=== PATIENT | female | born 1945 | race Caucasian/White ===

== ENCOUNTER 2023-09-17 15:32 | Inpatient (IN) | payer MEDICARE, BC ==
--- NOTE | 2023-09-17 16:11 | ED ---
Recheck HPI - General Chief Complaint: Recheck/Abnormal Lab/Rx Stated Complaint: Transfer-Vertigo Time Seen by Provider: 09/17/23 15:55 Source: patient, EMS, RN notes reviewed, old records reviewed Mode of arrival: ambulatory Limitations: no limitations - History of Present Illness Initial Comments: This is a 77-year-old female accepted in transfer from [facility] excepted for evaluation regards to vertiginous symptoms uncontrolled blood pr essure and kidney failure kidney disease. Patient himself is without significant patient has no current complaints of headache chest pain shortness of breath or abdominal pain. MD Complaint: abnormal lab (Abnormal kidney function), other (Persistent vertiginous symptoms and dizziness) -: hour(s) Returns Today for: Called Because of Abnormal Lab/Test, persistent/worsening pain related to initial visit Symptoms Since Prior Visit: no new symptoms Context: called for abnormal lab result Associated Symptoms: fever Treatments Prior to Arrival: other (0) - Related Data Previous Rx's Medication Instructions Recorded Acetaminophen Tab [Tylenol] 650 mg PO Q6HR PRN tab 09/22/23 Aspirin 81 mg PO DAILY tab 09/22/23 Atorvastatin [Lipitor] 40 mg PO HS tab 09/22/23 Clopidogrel [Plavix] 75 mg PO DAILY #0 tab 09/22/23 Dapagliflozin Propanediol [Farxiga] 5 mg PO DAILY #30 tablet 09/22/23 Insulin Detemir (Levemir) [Levemir] 25 unit SQ DAILY@0700 each 09/22/23 Sodium Bicarbonate Tab 650 mg PO BID tab 09/22/23 Allergies Allergy/AdvReac Type Severity Reaction Status Date / Time No Known Allergies Allergy Verified 09/17/23 16:24 Review of Systems ROS Statement: Those systems with pertinent positive or pertinent negative responses have been documented in the HPI. ROS Other: All systems not noted in ROS Statement are negative. Past Medical History Past Medical History: No Reported History History of Any Multi-Drug Resistant Organisms: None Reported Additional Past Surgical History / Comment(s): cataracts Past Psychological History: No Psychological Hx Reported Smoking Status: Never smoker Past Alcohol Use History: None Reported Past Drug Use History: None Reported General Exam Limitations: no limitations General appearance: alert, in no apparent distress Head exam: Present: atraumatic, normocephalic, normal inspection Eye exam: Present: normal appearance, PERRL, EOMI, nystagmus. Absent: scleral icterus, conjunctival injection, periorbital swelling ENT exam: Present: normal exam, mucous membranes moist Neck exam: Present: normal inspection. Absent: tenderness, meningismus, lymphadenopathy Respiratory exam: Present: normal lung sounds bilaterally. Absent: respiratory distress, wheezes, rales, rhonchi, stridor Cardiovascular Exam: Present: regular rate, normal rhythm, normal heart sounds. Absent: systolic murmur, diastolic murmur, rubs, gallop, clicks GI/Abdominal exam: Present: soft, normal bowel sounds. Absent: distended, tenderness, guarding, rebound, rigid Extremities exam: Present: normal inspection, full ROM, normal capillary refill. Absent: tenderness, pedal edema, joint swelling, calf tenderness Back exam: Present: normal inspection Neurological exam: Present: alert, oriented X3, CN II-XII intact Psychiatric exam: Present: normal affect, normal mood Skin exam: Present: warm, dry, intact, normal color. Absent: rash Course Vital Signs 09/17/23 09/17/23 09/17/23 15:38 17:19 20:22 Temperature 97.9 F Pulse Rate 78 89 99 Pulse Rate [ Complaint Operator ] Respiratory 18 18 18 Rate Blood Pressure 160/86 170/103 172/92 Blood Pressure [Right Arm] O2 Sat by Pulse 96 95 96 Oximetry 09/18/23 09/18/23 09/18/23 03:34 04:00 05:00 Temperature Pulse Rate 98 80 79 Pulse Rate [ Complaint Operator ] Respiratory 16 18 16 Rate Blood Pressure 157/89 158/90 145/99 Blood Pressure [Right Arm] O2 Sat by Pulse 100 100 99 Oximetry 09/18/23 09/18/23 09/18/23 06:00 08:10 11:04 Temperature 98.0 F 98.4 F Pulse Rate 82 Pulse Rate [ Complaint Operator ] Respiratory 15 16 16 Rate Blood Pressure 165/95 Blood Pressure 140/90 166/82 [Right Arm] O2 Sat by Pulse 99 95 96 Oximetry 09/18/23 09/18/23 15:35 18:45 Temperature 98.4 F 98.0 F Pulse Rate Pulse Rate [ 76 Complaint Operator ] Respiratory 16 18 Rate Blood Pressure Blood Pressure 157/75 151/88 [Right Arm] O2 Sat by Pulse 94 L 96 Oximetry - Reevaluation(s) Reevaluation #1: 09/17/23 16:53 Medical records reviewed Transfer paperwork has been reviewed Reevaluation #2: 09/17/23 16:53 Patient symptoms unchanged Reevaluation #3: 09/17/23 16:53 Patient informed of results and questions answered Reevaluation #4: Was pt. sent in by a medical professional or institution ([facility], POWER PRESS OPERATOR, urgent care, hospital, or long term...) When possible be specific @ -no Did you speak to anyone other than the patient for history (EMS, parent, family, police, friend...)? What history was obtained from this source @ -no Did you review nursing and triage notes (agree or disagree)? Why? @ -agree Are old charts reviewed (outside hosp., previous admission, EMS record, old EKG, old radiological studies, urgent care reports/EKG's, long term records)? Report findings @ -yes Differential Diagnosis (chest pain, altered mental status, abdominal pain women, abdominal pain men, vaginal bleeding, weakness, fever, dyspnea, syncope, headache, dizziness, GI bleed, back pain, seizure, CVA, palpatations, mental health, musculoskeletal)? @ -prior EKG interpreted by me (3pts min.). @ -no X-rays interpreted by me (1pt min.). @ -no CT interpreted by me (1pt min.). @ -no U/S interpreted by me (1pt. min.). @ -no What testing was considered but not performed or refused? (CT, X-rays, U/S, labs)? Why? @ -none What meds were considered but not given or refused? Why? @ -none Did you discuss the management of the patient with other professionals (professionals i.e. [facility], POWER PRESS OPERATOR, lab, RT, psych nurse, clinical social work aide, grounds caretaker, teacher, career services officer, classification case manager)? Give summary @ -no Was smoking cessation discussed for >3mins.? @ -no Was critical care preformed (if so, how long)? @ -no Were there social determinants of health that impacted care today? How? (Homelessness, low income, unemployed, alcoholism, drug addiction, transportation, low edu. Level, literacy, decrease access to med. care, prison, rehab)? @ -none Was there de-escalation of care discussed even if they declined (Discuss DNR or withdrawal of care, Hospice)? DNR status @ -no What co-morbidities impacted this encounter? (DM, HTN, Smoking, COPD, CAD, Cancer, CVA, ARF, Chemo, Hep., AIDS, mental health diagnosis, sleep apnea, morbid obesity)? @ -none Was patient admitted / discharged? Hospital course, mention meds given and route, prescriptions, significant lab abnormalities, going to OR and other pertinent info. @ - 77 female to ER for evaluation, accepted in transfer for vertiginous symptoms CVA, patient found to have acute renal failure with multiple electrode abnormalities. Patient will be admitted for further neurological evaluation, blood pressure control Admitted Undiagnosed new problem with uncertain prognosis? @ -no Drug Therapy requiring intensive monitoring for toxicity (Heparin, Nitro, Insulin, Cardizem)? @ -no Were any procedures done? @ -no Diagnosis/symptom? @ -CVA, vertigo Acute, or Chronic, or Acute on Chronic? @ -Acute Uncomplicated (without systemic symptoms) or Complicated (systemic symptoms)? @ -Complicated Side effects of treatment? @ -no Exacerbation, Progression, or Severe Exacerbation? @ -exacerbation Poses a threat to life or bodily function? How? (Chest pain, USA, SD, pneumonia, PE, COPD, DKA, ARF, appy, cholecystitis, CVA, Diverticulitis, Homicidal, Suicidal, threat to staff... and all critical care pts) @ -yes with vertiginous symptoms of CVA Reevaluation #5: Differential Dizziness: Benign paroxysmal positional Vertigo, Menieres disease, otitis media, acoustic neuroma, vertebrobasilar insufficiency, cerebellar stroke, encephalitis, hypovolemic, arrhythmia, coronary artery syndrome, anemia, this is not meant to be an all-inclusive list - Consultations Consultation #1: Spoke with admitting physicians who agreed to admit this patient Medical Decision Making - Medical Decision Making 77 female to ER for evaluation, accepted in transfer for vertiginous symptoms CVA, patient found to have acute renal failure with multiple electrode abnormalities. Patient will be admitted for further neurological evaluation, blood pressure control - Lab Data Result diagrams: 09/20/23 07:01 09/22/23 04:51 Critical Care Time Critical Care Time: Yes Total Critical Care Time: 31 Disposition Clinical Impression: Weakness, Hypertension, Dizziness, Vertigo, GORDO (acute kidney injury) Disposition: ADMITTED IP TO THIS HOSP Condition: Stable Is patient prescribed a controlled substance at d/c from ED?: No Time of Disposition: 16:50
[2023-09-17] MEDS ORDERED: MORPHINE SULFATE 4 MG/ML SYRINGE IV PRN (16:50)
[2023-09-17] MEDS ORDERED: ONDANSETRON 4 MG/2 ML VIAL IVP PRN (16:50)
[2023-09-17] MEDS ORDERED: NALOXONE 0.4 MG/ML 1 ML VIAL IV PRN (16:50)
[2023-09-17] MEDS: ASPIRIN 325 MG TAB PO STA (17:17)
[2023-09-17] MEDS ORDERED: DEXTROSE 50% SYRINGE 50 ML IVP PRN ×2 (17:57)
--- NOTE | 2023-09-17 18:05 | P.HPIM ---
History of Present Illness H&P Date: 09/17/23 Patient is a 77-year-old female with no significant past medical history presenting with strokelike symptoms. She claims that she was in her usual state of health, however, yesterday evening when she was playing bingo at her 's residence, started to become lightheaded. Later that night she got up to go to the bathroom and had similar episode and was able to lower herself onto the floor. She denies hitting her head at that time. This morning she was checked on by her neighbor as well as her daughter and was noted to be slow, fatigued, and was then brought to the hospital. Daughter did not notice any facial droop or slurring of words. She denies any chest pain, palpitations, nausea, vomiting, urinary or bowel complaints. She denies any upper or lower extremity weakness, trouble swallowing, word finding difficulties. She denies any fevers, chills, travel history or sick contacts. At [facility], on initial presentation she was hypertensive, WBC 12.8, hemoglobin 14.6, platelet 294, sodium 133, potassium 4.2, creatinine 2.2, glucose 368, troponin high-sensitivity slightly elevated to 21.6. UA was positive for 1+ leukocyte esterase, positive for nitrites. CT head did not show any acute process. CTA head and neck showed some calcified plaque in the common carotid arteries, no significant stenosis, did see some irregularities and M2 branches bilaterally concerning for atherosclerotic disease versus vasculitis. Patient was moved to our ER. In our ED, temperature was 97.9, pulse 78, respiratory rate 18, blood pressure 160/86, saturating at 96% on room air. Pertinent positives and negatives as discussed in HPI, a complete review of systems was performed and all other systems are negative. Patient seen and examined at bedside. Vital signs reviewed General: nontoxic, no distress, appears at stated age Derm: warm, dry Head: atraumatic, normocephalic, symmetric Eyes: EOMI, no lid lag, anicteric sclera, pupils equal round reactive to light ENT: Nose and ears atraumatic Neck: No thyromegaly, supple Mouth: no lip lesion, mucus membranes moist Cardiovascular: S1S2 reg, no murmur, no edema Lungs: clear to auscultation bilateral, no rhonchi, no rales, no wheeze, no accessory muscle use Abdominal: soft, nontender to palpation, no guarding, no appreciable organomegaly Ext: Right lower extremity weakness due to pain Neuro: CN II-XII grossly intact Psych: Alert, oriented, appropriate affect Assessment/Plan: Suspected acute CVA Near syncope Hypertension Acute renal failure? Elevated troponin Hyperglycemia Leukocytosis, possibly reactive - Started on aspirin 81 mg, atorvastatin 40 mg - Allow for permissive hypertension - Patient does not have any urinary complaints, unlikely to be a urinary tract infection - MRI brain ordered - Echocardiogram, carotid ultrasound pending - Lipid panel, A1c, repeat troponin, TSH, B12 pending - Neurology consulted, nephrology also consulted - Renal ultrasound ordered - Neurochecks, cardiac telemetry - Started on sliding scale insulin, monitor for hypoglycemia - PT/OT The patient is admitted with an anticipated greater than 2 midnight stay as inpatient status for evaluation of acute CVA. Surrogate decision-maker: Daughter CODE STATUS: Full code DVT prophylaxis: Subcu heparin Anticipated discharge date: Pending clinical course Anticipated discharge place: Pending clinical course A total of 55 minutes was spent on the care of this complex patient more than 50% of the time was spent in counseling and care coordination. Past Medical History Past Medical History: No Reported History History of Any Multi-Drug Resistant Organisms: None Reported Additional Past Surgical History / Comment(s): cataracts Past Psychological History: No Psychological Hx Reported Smoking Status: Never smoker Past Alcohol Use History: None Reported Past Drug Use History: None Reported Medications and Allergies Home Medications Medication Instructions Recorded Confirmed Type No Known Home Medications 09/17/23 09/17/23 History Allergies Allergy/AdvReac Type Severity Reaction Status Date / Time No Known Allergies Allergy Verified 09/17/23 16:24 Physical Exam Vitals: Vital Signs Temp Pulse Resp BP Pulse Ox 09/17/23 17:19 89 18 170/103 95 09/17/23 15:38 97.9 F 78 18 160/86 96 Intake and Output 09/17/23 09/17/23 09/17/23 06:59 14:59 22:59 Other: Weight 86.183 kg
[2023-09-17] MEDS: SODIUM CHLORIDE 0.9% 1,000 ML IV SCH (18:41)
[2023-09-17 20:13] LABS: Glucose,Whole Blood 282 mg/dL (70-110)
[2023-09-17] MEDS: INSULIN ASPART (NovoLOG) 100 UNIT/ML VIAL SQ SCH (20:23)
[2023-09-17] MEDS: ATORVASTATIN 40 MG TAB PO SCH (20:23)
--- NOTE | 2023-09-18 07:30 | US ---
EXAMINATION TYPE: US carotid duplex BILAT DATE OF EXAM: 09/17/2023 COMPARISON: NONE CLINICAL INDICATION: Female, 77 years old with history of Stenosis; dizziness yesterday TECHNIQUE: Carotid duplex ultrasound examination. Indirect Doppler criteria was utilized. FINDINGS: EXAM MEASUREMENTS: RIGHT: Peak Systolic Velocity (PSV) cm/sec ----- Right CCA: 48.1 ----- Right ICA: 63.4 ----- Right ECA: 136 ICA/CCA ratio: 1.32 RIGHT: End Diastole cm/sec ----- Right CCA: 12.5 ----- Right ICA: 18.8 ----- Right ECA: 10.2 LEFT: Peak Systolic Velocity (PSV) cm/sec ----- Left CCA: 54.6 ----- Left ICA: 53.0 ----- Left ECA: 72.9 ICA/CCA ratio: 0.97 LEFT: End Diastole cm/sec ----- Left CCA: 17.3 ----- Left ICA: 16.8 ----- Left ECA: 7.9 VERTEBRALS (direction of flow): Right Vertebral: Antegrade Left Vertebral: Antegrade Rhythm: Normal MANAGER ETL NOTES: No plaque seen. Left CCA is very tortuous IMPRESSION: No evidence for hemodynamically significant stenosis. Criteria for Assigning % of Stenosis / Diameter reduction (Estimation based on the indirect measurements of the internal carotid artery velocities (ICA PSV). 1. Normal (no stenosis)=ICA PSV < 125 cm/s: ratio < 2.0: ICA EDV<40 cm/s. 2. Less than 50% stenosis=ICA PSV < 125 cm/s: ratio < 2.0: ICA EDV<40 cm/s. 3. 50 to 69% stenosis=ICA PSV of 125 to 230 cm/s: ration 2.0 ? 4.0: ICA EDV 40-100 cm/s. 4. Greater than 70% stenosis to near occlusion= ICA PSV > 230 cm/s: ratio > 4.0: ICA EDV > 100 cm/s. 5. Near occlusion= ICA PSV velocities may be low or undetectable: variable ratio and ICA EDV. 6. Total occlusion=unable to detect flow.
--- NOTE | 2023-09-18 07:45 | US ---
EXAMINATION TYPE: US renals and bladder DATE OF EXAM: 09/17/2023 COMPARISON: NONE CLINICAL INDICATION: Female, 77 years old with history of gordo; GORDO EXAM MEASUREMENTS: Right Kidney: 10.5 x 5.0 x 5.9 cm Left Kidney: 9.8 x 4.9 x 5.1 cm Extremely limited exam due to lack of patient mobility and patient body habitus Right Kidney: Multiple anechoic lesions seen, largest measuring 3.5 x 3.3 x 4.2cm at the inferior pablo e. Left Kidney: Multiple anechoic lesions seen, largest measuring 1.8 x 2.1 x 2.3cm at the inferior pole Bladder: wnl as best seen Bilateral Jets seen: Left only IMPRESSION: Multiple renal cysts noted.
[2023-09-18 07:46] LABS: Basophils # (A) 0.1 k/uL (0-0.2); Basophils % (A) 1 %; Eosinophils # (A) 0.2 k/uL (0-0.7); Eosinophils % (A) 1 %; HCT 44.6 % (34.0-46.0); HGB 14.6 gm/dL (11.4-16.0); Lymphocytes # (A) 1.7 k/uL (1.0-4.8); Lymphocytes % (A) 12 %; MCH 32.6 pg (25.0-35.0); MCHC 32.7 g/dL (31.0-37.0); MCV 99.5 fL (80.0-100.0); Mean Platelet Volume 8.9; Monocytes # (A) 0.7 k/uL (0-1.0); Monocytes % (A) 5 %; Neutrophils # (A) 11.2 k/uL (1.3-7.7); Neutrophils % (A) 79 %; Platelet Count 290 k/uL (150-450); RBC 4.48 m/uL (3.80-5.40); RDW 12.5 % (11.5-15.5); WBC 14.1 k/uL (3.8-10.6)
[2023-09-18 07:59] LABS: ALT 15 U/L (4-34); AST 23 U/L (14-36); African American GFR (CKD) 23 (>60 ml/min/1.73 sqM); Albumin 3.9 g/dL (3.5-5.0); Alkaline Phosphatase 130 U/L (38-126); Anion Gap 11 mmol/L; Blood Urea Nitrogen 42 mg/dL (7-17); Calcium 9.7 mg/dL (8.4-10.2); Carbon Dioxide 19 mmol/L (22-30); Chloride 106 mmol/L (98-107); Glucose 276 mg/dL (74-99); Magnesium 2.2 mg/dL (1.6-2.3); Non-African American GFR(CKD) 20 (>60 ml/min/1.73 sqM); Phosphorus 4.1 mg/dL (2.5-4.5); Potassium 4.8 mmol/L (3.5-5.1); Sodium 136 mmol/L (137-145); Total Bilirubin 0.6 mg/dL (0.2-1.3); Total Protein 7.6 g/dL (6.3-8.2)
[2023-09-18] MEDS: PANTOPRAZOLE 40 MG/10 ML VIAL IV SCH (08:03)
[2023-09-18] MEDS: ASPIRIN 81 MG PO SCH (08:03)
[2023-09-18 08:09] LABS: Glucose,Whole Blood 322 mg/dL (70-110)
[2023-09-18] MEDS ORDERED: ASPIRIN 325 MG TAB PO SCH (09:00)
[2023-09-18 10:51] LABS: Chol/HDL Ratio 5.38 Ratio; LDL Cholesterol,Calculated 148.4 mg/dL (0.0-131.0)
--- NOTE | 2023-09-18 10:55 | P.NPCON ---
History of Present Illness - Reason for Consult acute renal failure - History of Present Illness Reason for consultation: Acute kidney injury History of present illness: Patient is a 77-year-old female seen in renal consultation for acute kidney injury. Patient was seen and examined in the emergency room. Patient initially presented to another facility due to concern for stroke. Patient became lighth eaded couple of times prior to admission and felt weak. She was noted to be slow, fatigue and was subsequently taken to the hospital. Initial CAT scan did not show any acute process. She also underwent CTA of the head and neck which showed some calcified plaque in the common carotid arteries and no significant stenosis. Patient's creatinine initially was 2.2 and is stable at 2.26 at this facility as well. Blood pressure is better controlled. Most recent reading was 140/90. Patient is on room air. She denies any weakness in any extremities. She denies any vision changes. Denies headaches. Denies chest pain or shortness of breath. Denies gross hematuria or dysuria. Patient denies use of nonsteroidals. Denies history of coronary artery disease. No history of diabetes. Denies family history of renal disease. Oral intake has been fair. Denies vomiting or diarrhea. Vital signs are stable. General: No acute distress. HEENT: Head exam is unremarkable. LUNGS: No audible rhonchi or wheezes. HEART: Rate and Rhythm are regular. ABDOMEN: Nontender. EXTREMITITES: No edema. Past Medical History Past Medical History: No Reported History History of Any Multi-Drug Resistant Organisms: None Reported Additional Past Surgical History / Comment(s): cataracts Past Psychological History: No Psychological Hx Reported Smoking Status: Never smoker Past Alcohol Use History: None Reported Past Drug Use History: None Reported Medications and Allergies Home Medications Medication Instructions Recorded Confirmed Type No Known Home Medications 09/17/23 09/17/23 History Allergies Allergy/AdvReac Type Severity Reaction Status Date / Time No Known Allergies Allergy Verified 09/17/23 16:24 Physical Exam Vitals: Vital Signs Temp Pulse Resp BP BP Pulse Ox 09/18/23 08:10 98.0 F 16 140/90 95 09/18/23 06:00 82 15 165/95 99 09/18/23 05:00 79 16 145/99 99 09/18/23 04:00 80 18 158/90 100 09/18/23 03:34 98 16 157/89 100 09/17/23 20:22 99 18 172/92 96 09/17/23 17:19 89 18 170/103 95 09/17/23 15:38 97.9 F 78 18 160/86 96 Intake and Output 09/17/23 09/18/23 09/18/23 22:59 06:59 14:59 Intake Total 250 Output Total 700 Balance -450 Intake: IV 10 Invasive Line 1 10 Oral 240 Output: Urine 700 Other: Voiding Method External Catheter # Voids 3 Weight 86.183 kg Results - Lab Results Most recent lab results Calcium 9.7 mg/dL (8.4-10.2) 09/18/23 07: Phosphorus 4.1 mg/dL (2.5-4.5) 09/18/23 07: Magnesium 2.2 mg/dL (1.6-2.3) 09/18/23 07:24 09/18/23 07:24 09/18/23 07:24 Assessment and Plan Plan: Assessment: 1. Acute kidney injury versus chronic kidney disease. Patient's creatinine stable at 2.2. Unknown baseline renal function. Patient denies prior history of kidney disease. Patient did receive IV contrast for CT angiogram of the head and neck on September 17, 2023. 2. Suspected acute CVA. Initial CT negative. MRI pending. 3. Benign hypertension. Stable. 4. Diabetes mellitus with hemoglobin A1c elevated at 9.2% this admission. 5. Metabolic acidosis secondary to acute kidney injury and IV fluids. Plan: Maintain gentle IV hydration. Currently on normal saline at 50 cc an hour. Add oral bicarb. Check UA. Check renal ultrasound. Avoid nephrotoxins. Continue to monitor renal function and urine output. Follow-up echocardiogram and MRI of the brain. Thank you for the consultation. I will continue to follow the patient with you during her hospital stay.
[2023-09-18] MEDS: SODIUM BICARBONATE TAB 650 MG TAB PO SCH (11:16)
[2023-09-18] MEDS: ACETAMINOPHEN TAB 325 MG TAB PO PRN (11:16)
[2023-09-18 11:53] LABS: Glucose,Whole Blood 295 mg/dL (70-110)
[2023-09-18 12:03] LABS: Appearance,Urine Cloudy (Clear); Bacteria,Urine Rare /hpf; Bilirubin,Urine Negative (Negative); Blood,Urine Trace (Negative); Color,Urine Colorless; Glucose,Urine (UA) 3+ (Negative); Ketones,Urine Negative (Negative); Leukocyte Esterase,Urine Large (Negative); Nitrite,Urine Negative (Negative); Protein,Urine 2+ (Negative); RBC,Urine 2 /hpf (0-5); Specific Gravity,Urine 1.022 (1.001-1.035); Squamous Epithelial Cell,Urine 2 /hpf (0-4); Urobilinogen,Urine <2.0 mg/dL (<2.0); WBC,Urine 96 /hpf (0-5)
--- NOTE | 2023-09-18 12:37 | CA ---
Transthoracic Echo Report Name: Kayce Mercado Age: 77 Gender: F : 1945 Exam Date: 09/18/2023 07:32 Exam Location: [place] [facility] Ht (in): 64 Wt (lb): 190 Ordering Physician: Andrea Hernandez DO Attending/Referring Phys: [id number], Mary Informaticist Siobhan Lopez RDCS Procedure CPT: Indications: Thrombus Cardiac Hx: Technical Quality: Technically difficult study Contrast 1: Definity Total Dose (mL): 2 Contrast 2: Total Dose (mL): MEASUREMENTS (Male / Female) Normal Values 2D ECHO LV Diastolic Diameter PLAX 2.7 cm 4.2 - 5.9 / 3.9 - 5.3 cm LV Systolic Diameter PLAX 2.3 cm IVS Diastolic Thickness 1.4 cm 0.6 - 1.0 / 0.6 - 0.9 cm LVPW Diastolic Thickness 1.2 cm 0.6 - 1.0 / 0.6 - 0.9 cm LV Relative Wall Thickness 1.0 LA Volume 51.7 cm??? 18 - 58 / 22 - 52 cm??? LA Volume Index 25.8 cm???/m??? 16 - 28 cm???/m??? DOPPLER AV Peak Velocity 115.0 cm/s AV Peak Gradient 5.3 mmHg AV Mean Velocity 89.3 cm/s AV Mean Gradient 3.4 mmHg AV Velocity Time Integral 21.4 cm LVOT Peak Velocity 94.1 cm/s LVOT Peak Gradient 3.5 mmHg LVOT Velocity Time Integral 18.7 cm Mitral E Point Velocity 67.3 cm/s Mitral A Point Velocity 100.4 cm/s Mitral E to A Ratio 0.7 MV E' Velocity 2.4 cm/s Mitral E to MV E' Ratio 28.3 FINDINGS Left Ventricle Mildly increased left ventricular wall thickness. Left ventricular cavity size normal. [place] aneurysmal. Can not exclude left ventricular apical thrombus. Left ventricular ejection fraction is estimated at 45-50 %. Grade 1 diastolic dysfunction. Right Ventricle Right ventricle not well visualized. Right ventricular systolic pressure within normal limits. Right Atrium Right atrium not well visualized. Left Atrium Normal left atrial size. Mitral Valve Structurally normal mitral valve. Mild mitral regurgitation. Aortic Valve No aortic valve stenosis or regurgitation. Trileaflet aortic valve. Tricuspid Valve Tricuspid valve not well visualized. Pulmonic Valve Pulmonic valve not well visualized. Pericardium No pericardial effusion. Aorta Aortic root and proximal ascending aorta not well visualized. 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 Sarabjit Jon MD (Electronically Signed) Final Date: 18 September 2023 12:36
--- NOTE | 2023-09-18 13:52 | P.PN ---
Subjective Progress Note Date: 09/18/23 Hospital Course: 77-year-old female with no significant past medical history presenting with [facility] symptoms. At [facility], on initial presentation she was hypertensive, WBC 12.8, hemoglobin 14.6, platelet 294, sodium 133, potassium 4.2, creatinine 2.2, glucose 368, troponin high-sensitivity slightly elevated to 21.6. UA was positive for 1+ leukocyte esterase, positive for nitrites. CT head did not show any acute process. CTA head and neck showed some calcified plaque in the common carotid arteries, no significant stenosis, did see some irregularities and M2 branches bilaterally concerning for atherosclerotic disease versus vasculitis. Patient was moved to our ER. In our ED, temperature was 97.9, pulse 78, respiratory rate 18, blood pressure 160/86, saturating at 9 6% on room air. Stroke workup pending. Subjective: Patient seen and examined at bedside. No acute events overnight. Denies any further symptoms. Pertinent positives and negatives as discussed above, a complete review of systems was performed and all other systems are negative. Vitals Signs Reviewed. General: nontoxic, no distress, appears at stated age Derm: warm, dry Head: atraumatic, normocephalic, symmetric Eyes: EOMI, no lid lag, anicteric sclera, pupils equal round reactive to light ENT: Nose and ears atraumatic Neck: No thyromegaly, supple Mouth: no lip lesion, mucus membranes moist Cardiovascular: S1S2 reg, no murmur, no edema Lungs: clear to auscultation bilateral, no rhonchi, no rales, no wheeze, no accessory muscle use Abdominal: soft, nontender to palpation, no guarding, no appreciable organomegaly Ext: Right lower extremity weakness due to pain Neuro: CN II-XII grossly intact Psych: Alert, oriented, appropriate affect Data Reviewed Today: Pertinent Labs: WBC 14.1 sodium 136, creatinine 2.26, blood sugars range between 2 76-3 12, LDL 148, total cholesterol 241, urinalysis negative for nitrites, positive for leukocyte esterase, rare bacteria. Imaging: Echocardiogram shows aneurysmal apex, LV H with easily preserved LV systolic function EF 50 to 55%, with no clear-cut thrombus identified with contrast. Renal ultrasound shows multiple renal cyst. Assessment and Plan: Suspected acute CVA Near syncope Hypertension Dyslipidemia Acute renal failure versus chronic kidney disease Newly diagnosed type 2 diabetes, A1c 9.2 Leukocytosis, possibly reactive -Continue aspirin 81 mg, atorvastatin 40 mg -Also started on lisinopril 10, hydrochlorothiazide 12.5 - MRI brain ordered Discussed management with neurology, concerning findings noted on previous CTA , MRA ordered -Cardiology also consulted, orthostatic vitals have been ordered -Nephrology note reviewed, continue normal saline at 50 cc an hour, added oral bicarb - Neurochecks, cardiac telemetry - on sliding scale insulin, monitor for hypoglycemia, also started on 10 units of Levemir daily - PT/OT DVT ppx: Subcu heparin Code status: Full code Anticipated discharge place: Pending clinical course Anticipated discharge time: Pending clinical course Objective - Vital Signs Vital signs: Vital Signs Temp 98.4 F 09/18/23 11:04 Pulse 82 09/18/23 06:00 Resp 16 09/18/23 11:04 BP 166/82 09/18/23 11:04 Pulse Ox 96 09/18/23 11:04 FiO2 Intake & Output 09/17/23 09/18/23 09/18/23 18:59 06:59 18:59 Intake Total 890 Output Total 850 Balance 40 Weight 86.183 kg 86.183 kg Intake: IV 10 Invasive Line 1 10 Intake, IV Titration 400 Amount Sodium Chloride 0.9% 1, 400 000 ml @ 50 mls/hr IV . Q20H [facility] Rx#:[id number] Oral 480 Output: Urine 850 Other: Voiding Method External Catheter # Voids 1 - Labs CBC & Chem 7: 09/18/23 07:24 09/18/23 07:24 Labs: Abnormal Lab Results - Last 24 Hours (Table) 09/17/23 09/17/23 09/17/23 Range/Units 17:30 17:30 20:12 WBC (3.8-10.6) k/uL Neutrophils # (1.3-7.7) k/uL Sodium (137-145) mmol/L Carbon Dioxide (22-30) mmol/L BUN (7-17) mg/dL Creatinine (0.52-1.04) mg/dL Glucose (74-99) mg/dL POC Glucose (mg/dL) 282 H (70-110) mg/dL Hemoglobin A1c 9.2 H (<=6.0) % Alkaline Phosphatase (38-126) U/L Triglycerides (0.00-149.00) mg/dL Cholesterol (0.00-200.00) mg/dL LDL Cholesterol, Calc (0.0-131.0) mg/dL VLDL Cholesterol, Calc (5.00-40.00) mg/dL Vitamin B12 1235.0 H (200.0-944.0) pg/mL Urine Appearance (Clear) Urine Protein (Negative) Urine Glucose (UA) (Negative) Urine Blood (Negative) Ur Leukocyte Esterase (Negative) Urine WBC (0-5) /hpf Urine Bacteria (None) /hpf 09/18/23 09/18/23 09/18/23 Range/Units 07:24 07:24 08:02 WBC 14.1 H (3.8-10.6) k/uL Neutrophils # 11.2 H (1.3-7.7) k/uL Sodium 136 L (137-145) mmol/L Carbon Dioxide 19 L (22-30) mmol/L BUN 42 H (7-17) mg/dL Creatinine 2.26 H (0.52-1.04) mg/dL Glucose 276 H (74-99) mg/dL POC Glucose (mg/dL) 322 H (70-110) mg/dL Hemoglobin A1c (<=6.0) % Alkaline Phosphatase 130 H (38-126) U/L Triglycerides 239.00 H (0.00-149.00) mg/dL Cholesterol 241.00 H (0.00-200.00) mg/dL LDL Cholesterol, Calc 148.4 H (0.0-131.0) mg/dL VLDL Cholesterol, Calc 47.80 H (5.00-40.00) mg/dL Vitamin B12 (200.0-944.0) pg/mL Urine Appearance (Clear) Urine Protein (Negative) Urine Glucose (UA) (Negative) Urine Blood (Negative) Ur Leukocyte Esterase (Negative) Urine WBC (0-5) /hpf Urine Bacteria (None) /hpf 09/18/23 09/18/23 Range/Units 09:17 11:51 WBC (3.8-10.6) k/uL Neutrophils # (1.3-7.7) k/uL Sodium (137-145) mmol/L Carbon Dioxide (22-30) mmol/L BUN (7-17) mg/dL Creatinine (0.52-1.04) mg/dL Glucose (74-99) mg/dL POC Glucose (mg/dL) 295 H (70-110) mg/dL Hemoglobin A1c (<=6.0) % Alkaline Phosphatase (38-126) U/L Triglycerides (0.00-149.00) mg/dL Cholesterol (0.00-200.00) mg/dL LDL Cholesterol, Calc (0.0-131.0) mg/dL VLDL Cholesterol, Calc (5.00-40.00) mg/dL Vitamin B12 (200.0-944.0) pg/mL Urine Appearance Cloudy H (Clear) Urine Protein 2+ H (Negative) Urine Glucose (UA) 3+ H (Negative) Urine Blood Trace H (Negative) Ur Leukocyte Esterase Large H (Negative) Urine WBC 96 H (0-5) /hpf Urine Bacteria Rare H (None) /hpf
[2023-09-18] MEDS: INSULIN DETEMIR (LEVEMIR) 100 UNIT/ML SYR SQ ONE (15:36)
[2023-09-18] MEDS: LISINOPRIL-HCTZ 10-12.5 MG 1 EACH TAB PO SCH (15:36)
[2023-09-18] MEDS: HEPARIN SODIUM,PORCINE 5,000 UNIT/ML 1 ML VIAL SQ SCH (15:40)
[2023-09-18 16:17] LABS: Glucose,Whole Blood 320 mg/dL (70-110)
--- NOTE | 2023-09-18 16:33 | P.CNNES ---
History of Present Illness Consult date: 09/18/23 Requesting physician: Andrea Hernandez Reason for Consult: vertigo History of Present Illness: This is a 77 year-old woman who was transferred from outside facility for vertigo and escalation of care. Patient is not great history and some history is obtained from medical records. It seems the patient felt dizzy yesterday and was taken to [facility]. Per record she was lightheaded when she got up to go to bathroom. She was taken to outside hospital and was discharged. But she came back to hospital since she continued to have dizziness with nausea and vomiting and felt she fell on floor. Per medical records she lowered herself to floor. She felt slow, fatigued. She had CT and CTA at outside [facility]. CT head did not show any acute process. CTA head and neck showed some calcified plaque in the common carotid arteries, no significant stenosis, did see some irregularities and M2 branches bilaterally concerning for atherosclerotic disease versus vasculitis. She was also hypertensive. The refore she was transferred for escalation of care. Today she is feeling better. She denies any history of stroke in past. She stated she does not seek going to hospital and tried not to take medicati ons. Some of the work-up in our facility consisted of: Lipid panel: TG 239, chol 241, LDL 148, HDL 47 HBA1c: 9.2 Carotid is reported as no evidence for hemodynamically significant stenosis. 2D echo: Is revored as LVH with easily preserved LV systolic function with EF 50-55%. No clear cut thrombus. Vitamin B12: 1235 TSH: 2.56 Creatnine is 2.26 U/A appears possible underlying UTI Review of Systems The positive and negative as per HPI. Past Medical History Past Medical History: No Reported History History of Any Multi-Drug Resistant Organisms: None Reported Additional Past Surgical History / Comment(s): cataracts Smoking Status: Never smoker Medications and Allergies Home Medications Medication Instructions Recorded Confirmed Type No Known Home Medications 09/17/23 09/17/23 History Allergies Allergy/AdvReac Type Severity Reaction Status Date / Time No Known Allergies Allergy Verified 09/17/23 16:24 Physical Examination - Vital Signs Vital Signs: Vital Signs Temp Pulse Resp BP BP Pulse Ox 09/18/23 15:35 98.4 F 16 157/75 94 L 09/18/23 11:04 98.4 F 16 166/82 96 09/18/23 08:10 98.0 F 16 140/90 95 09/18/23 06:00 82 15 165/95 99 09/18/23 05:00 79 16 145/99 99 09/18/23 04:00 80 18 158/90 100 09/18/23 03:34 98 16 157/89 100 09/17/23 20:22 99 18 172/92 96 09/17/23 17:19 89 18 170/103 95 Intake and Output 09/18/23 09/18/23 09/18/23 06:59 14:59 22:59 Intake Total 890 Output Total 850 Balance 40 Intake: IV 10 Invasive Line 1 10 Intake, IV Titration 400 Amount Sodium Chloride 0.9% 1, 400 000 ml @ 50 mls/hr IV . Q20H [facility] Rx#:[id number] Oral 480 Output: Urine 850 Other: Voiding Method External Catheter # Voids 1 Weight 86.183 kg General: Lying in bed and is not in acute distress. HENT: Supple neck. Neuro: The patient is awake, alert, oriented to self, place and time. Is following simple commands. No aphasia or neglect. Pupils are round, equal and reactive to light. Pupils are 3mm bilaterally. Visual preciado are full to confrontation. EOM intact and no nystagmus. No facial weakness. No dysarthria. Tongue is midline and moves side to side without difficulty. Motor: Strength is limited right lower because of pain. Otherwise strength is 5/5. Sensation: Normal to touch throughout. Reflex: 1+ throughout. Plantars: Mute bilaterally. Results - Laboratory Findings CBC and BMP: 09/18/23 07:24 09/18/23 07:24 Abnormal Lab Findings: Abnormal Labs 09/17/23 09/17/23 09/17/23 17:30 17:30 20:12 WBC Neutrophils # Sodium Carbon Dioxide BUN Creatinine Glucose POC Glucose (mg/dL) 282 H Hemoglobin A1c 9.2 H Alkaline Phosphatase Triglycerides Cholesterol LDL Cholesterol, Calc VLDL Cholesterol, Calc Vitamin B12 1235.0 H Urine Appearance Urine Protein Urine Glucose (UA) Urine Blood Ur Leukocyte Esterase Urine WBC Urine Bacteria 09/18/23 09/18/23 09/18/23 07:24 07:24 08:02 WBC 14.1 H Neutrophils # 11.2 H Sodium 136 L Carbon Dioxide 19 L BUN 42 H Creatinine 2.26 H Glucose 276 H POC Glucose (mg/dL) 322 H Hemoglobin A1c Alkaline Phosphatase 130 H Triglycerides 239.00 H Cholesterol 241.00 H LDL Cholesterol, Calc 148.4 H VLDL Cholesterol, Calc 47.80 H Vitamin B12 Urine Appearance Urine Protein Urine Glucose (UA) Urine Blood Ur Leukocyte Esterase Urine WBC Urine Bacteria 09/18/23 09/18/23 09:17 11:51 WBC Neutrophils # Sodium Carbon Dioxide BUN Creatinine Glucose POC Glucose (mg/dL) 295 H Hemoglobin A1c Alkaline Phosphatase Triglycerides Cholesterol LDL Cholesterol, Calc VLDL Cholesterol, Calc Vitamin B12 Urine Appearance Cloudy H Urine Protein 2+ H Urine Glucose (UA) 3+ H Urine Blood Trace H Ur Leukocyte Esterase Large H Urine WBC 96 H Urine Bacteria Rare H Assessment and Plan Assessment: This is a 77 y/o woman who was transferred from outside facility for escalation of care for her dizziness. She denies seeing a PCP or taking medications. Acute vertigo: Rule out acute ischemic stroke with newly risk factors (Newly diagnosed DM, HTN, dyslipidemia. As well age and her gender) Newly Diagnosed DM Dyslipidemia HTN Possible acute UTI Kidney insufficiency and unsure if acute or chronic Plan: MRI Brain is ordered. I ordered MRA head. She is started on ASA 81mg and Lipitor 40mg qhs. She was not on medications prior to this per patient. Continue neuro checks Cardiac monitoring Recommend orthostatic once is pain free. PT and OT are consulted. Cardiology and Nephrology are consulted. Will defer rest of medical management to primary team and other specialist. For DVT prophylaxis: On subq heparin. The plan is discussed with patient, her nurse and primary attending. Thank you for the consultation. Time with Patient: Greater than 30
[2023-09-18] MEDS: LORazepam 2 MG/ML INJ IV ONE (16:48)
--- NOTE | 2023-09-18 18:21 | MR ---
MRI brain without contrast HISTORY: CVA. COMPARISON: None. TECHNIQUE: Multiecho multiplanar images of brain were obtained without contrast. FINDINGS: On the T1-weighted sagittal images the midline structures including the craniovertebral junction rela tionships are normal. The ventricles, basal cisterns and sulci over convexities are within normal limits for the patient's age and there is no mass effect or shift of the midline structures. There is moderate to marked diffuse and multifocal abnormal increased signal intensity in the periven tricular white matter both cerebral hemispheres consistent with chronic ischemic white matter [place]. Based on diffusion-weighted imaging, there is a focal area of diffusion restriction indicating acute ischemic event in the right midbrain. Based on susceptibility weighted imaging, there is no parenchymal hemorrhage. The intraorbital contents are normal and symmetric. Visualized paranasal sinuses and mastoid air cells are well aerated. IMPRESSION: 1. Small focal acute ischemic infarct involving the right midbrain. 2. Mild age-appropriate atrophy. 3. Moderate to marked chronic ischemic white matter demyelination. 4. No mass effect or shift of the midline structures.
--- NOTE | 2023-09-18 18:23 | MR ---
EXAMINATION TYPE: MR angio head wo con DATE OF EXAM: 09/18/2023 COMPARISON: None HISTORY: CVA. stroke. TECHNIQUE: Time of flight images focusing on the [place] were performed without contrast. FINDINGS: There is no aneurysm sac, vascular malformation, segmental occlusion or stenosis. IMPRESSION: No significant abnormality seen.
--- NOTE | 2023-09-18 18:25 | XR ---
Right knee. HISTORY: Pain following fall. COMPARISON: None TECHNIQUE: 4 views of the right knee were obtained. FINDINGS: There is diffuse osteopenia. There are arteriovascular calcifications. There is no fracture, dislocation or focal intraosseous abnormality. There is moderate narrowing of the medial compartment of the knee indicating moderate osteoarthritis. There is moderate to marked narrowing of the patellofemoral compartment consistent with moderate to marked osteoarthritis. There is chondrocalcinosis in the lateral compartment of the knee.. IMPRESSION: 1. No evidence of acute trauma. 2. Tricompartment osteoarthritis. 3. Diffuse osteopenia and arteriovascular calcifications.
[2023-09-18 20:26] LABS: Glucose,Whole Blood 289 mg/dL (70-110)
[2023-09-19 06:19] LABS: Glucose,Whole Blood 348 mg/dL (70-110)
[2023-09-19] MEDS: INSULIN DETEMIR (LEVEMIR) 100 UNIT/ML SYR SQ SCH (06:33)
[2023-09-19 07:52] LABS: Basophils # (A) 0.1 k/uL (0-0.2); Basophils % (A) 0 %; Eosinophils # (A) 0.1 k/uL (0-0.7); Eosinophils % (A) 0 %; HCT 42.7 % (34.0-46.0); HGB 13.3 gm/dL (11.4-16.0); Lymphocytes # (A) 1.8 k/uL (1.0-4.8); Lymphocytes % (A) 14 %; MCH 31.3 pg (25.0-35.0); Mean Platelet Volume 8.7; Monocytes # (A) 0.8 k/uL (0-1.0); Monocytes % (A) 6 %; Neutrophils # (A) 10.4 k/uL (1.3-7.7); Neutrophils % (A) 78 %; Platelet Count 238 k/uL (150-450); RBC 4.23 m/uL (3.80-5.40); RDW 12.1 % (11.5-15.5); WBC 13.3 k/uL (3.8-10.6)
[2023-09-19 08:03] LABS: African American GFR (CKD) 18 (>60 ml/min/1.73 sqM); Anion Gap 10 mmol/L; Blood Urea Nitrogen 55 mg/dL (7-17); Calcium 9.1 mg/dL (8.4-10.2); Carbon Dioxide 19 mmol/L (22-30); Chloride 105 mmol/L (98-107); Glucose 249 mg/dL (74-99); Magnesium 2.3 mg/dL (1.6-2.3); Non-African American GFR(CKD) 16 (>60 ml/min/1.73 sqM); Potassium 4.5 mmol/L (3.5-5.1); Sodium 134 mmol/L (137-145)
[2023-09-19] MEDS: CLOPIDOGREL 75 MG TAB PO SCH (09:19)
--- NOTE | 2023-09-19 10:54 | P.CRDCN ---
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 We have been asked to evaluate the patient for near syncope. Patient states that she was at [place] visiting her who was there on long-term care and she started having dizziness ended up falling when she was getting up to the bathroom and ended up falling down and was then treated at [facility]. She also had a second episode with dizziness fatigue and some nausea and vomiting. [facility] found to have a CVA Per MRI of the brain that revealed a small focal acute ischemic infarct involving the right midbrain. Otherwise age-related appropriate atrophy. Patient denies having any weakness on one side of her body, no difficulty with her speech. Patient had also presented to [facility] with hypertension. Upon arrival to the emergency center at [facility], blood pressure 170/103. Patient has been started on aspirin 81 mg daily, atorvastatin 40 mg at bedtime, heparin subcu, lisinopril/hydrochlorothiazide and sodium bicarb. EKG sinus rhythm with nonspecific ST changes Echocardiogram reveals LVH with preserved LV systolic function EF 50 to 55% with distal apical aneurysm. No clear-cut thrombus identified even with Definity. Laboratory studies: WBC initially 14.1 now 13.3, hemoglobin 13.3. Sodium 134 potassium 4.5. BUN 55 and creatinine 2.77. Blood sugar 249. Alkaline phosphatase 130 otherwise liver function test are normal. Troponin negative x 2. Triglycerides 239, cholesterol 241, LDL 148, HDL 44. Urinalysis leukoesterase large, WBCs 96. A1c 9.2. Home cardiac medications: None Review Of Systems: At the time of my exam: CONSTITUTIONAL: Denies fever or chills. HEENT: Denies blurred vision, vision changes, or eye pain. Denies hemoptysis CARDIOVASCULAR: Denies chest pain. Denies orthopnea. Denies PND. Denies palpitations RESPIRATORY: Denies shortness of breath. GASTROINTESTINAL: Denies abdominal pain. Denies nausea or vomiting. HEMATOLOGIC: Denies bleeding disorders. GENITOURINARY: Denies any blood in urine. SKIN: Denies pruitis. Denies rash. Physical examination: Gen: This is a 77-year-old female in no acute distress VS: reviewed blood pressure 121/78, heart rate 84, pulse ox 94% on room air. HEENT: Head is atraumatic, normocephalic. Pupils equal, round. Sclerae is anicteric. NECK: Supple. No JVD. LUNGS: Clear to auscultation. No wheezes or rhonchi. No intercostal retractions. HEART: Regular rate and rhythm. No murmur. ABDOMEN: Soft No tenderness. EXTREMITIES: No pedal edema. No calf tenderness. NEUROLOGICAL: Patient is awake, alert and oriented x3. Assessment: CVA Dizziness Acute kidney injury Uncontrolled hypertension Diabetes mellitus type 2, A1c 9.2, new diagnosis Hyperlipidemia Urinary tract infection Plan: Continue current cardiac medications Control hypertension Further recommendations to follow based upon clinical course Thank you kindly for this consultation. Nurse practitioner note has been reviewed, I agree with documented findings and plan of care. Patient was seen and examined. Past Medical History Past Medical History: No Reported History History of Any Multi-Drug Resistant Organisms: None Reported Additional Past Surgical History / Comment(s): cataracts Smoking Status: Never smoker Medications and Allergies Home Medications Medication Instructions Recorded Confirmed Type No Known Home Medications 09/17/23 09/17/23 History Allergies Allergy/AdvReac Type Severity Reaction Status Date / Time No Known Allergies Allergy Verified 09/17/23 16:24 Physical Exam Vitals: Vital Signs Temp Pulse Resp BP Pulse Ox 09/19/23 04:00 98.3 F 84 18 121/78 94 L 09/19/23 02:00 82 20 09/19/23 00:00 98.0 F 82 18 132/84 93 L 09/18/23 20:00 98.2 F 84 20 136/87 96 09/18/23 18:45 98.0 F 76 18 151/88 96 09/18/23 15:35 98.4 F 16 157/75 94 L 09/18/23 11:04 98.4 F 16 166/82 96 09/18/23 08:10 98.0 F 16 140/90 95 Intake and Output 09/18/23 09/19/23 09/19/23 22:59 06:59 14:59 Intake Total 20 10 Output Total 500 Balance -480 10 Intake: IV 20 10 Invasive Line 2 20 10 Output: Urine 500 Other: Voiding Method External Catheter External Catheter # Voids 1 1 Weight 86.4 kg Results 09/19/23 07:17 09/19/23 07:17 Lipids 09/18/23 Range/Units 07:24 Triglycerides 239.00 H (0.00-149.00) mg/dL Cholesterol 241.00 H (0.00-200.00) mg/dL HDL Cholesterol 44.80 (40.00-60.00) mg/dL Cholesterol/HDL Ratio 5.38 Ratio CBC 09/19/23 Range/Units 07:17 WBC 13.3 H (3.8-10.6) k/uL RBC 4.23 (3.80-5.40) m/uL Hgb 13.3 (11.4-16.0) gm/dL Hct 42.7 (34.0-46.0) % Plt Count 238 (150-450) k/uL Current Medications Generic Name Dose Route Start Last Admin Trade Name Freq PRN Reason Stop Dose Admin Acetaminophen 650 mg 09/18/23 11:01 09/18/23 18:58 Acetaminophen Tab 325 Mg Tab PO 650 mg Q6HR PRN Administration Fever and/ or Pain Aspirin 81 mg 09/18/23 09:00 09/18/23 08:03 Aspirin 81 Mg PO 81 mg DAILY AUDREY Administration Atorvastatin Calcium 40 mg 09/17/23 21:00 09/18/23 21:31 Atorvastatin 40 Mg Tab PO 40 mg HS AUDREY Administration Dextrose/Water 25 ml 09/17/23 17:57 Dextrose 50% Syringe 50 Ml IVP PER PROTOCOL PRN Hypoglycemia Protocol Dextrose/Water 50 ml 09/17/23 17:57 Dextrose 50% Syringe 50 Ml IVP PER PROTOCOL PRN Hypoglycemia Protocol Lisinopril/HCTZ 1 each 09/18/23 14:00 09/18/23 15:36 Lisinopril-Hctz 10-12.5 Mg 1 Each Tab PO 1 each DAILY AUDREY Administration Heparin Sodium (Porcine) 5,000 unit 09/18/23 16:00 09/18/23 23:45 Heparin Sodium,Porcine 5,000 Unit/Ml 1 Ml Vial SQ 5,000 unit Q8HR AUDREY Administration Sodium Chloride 1,000 mls @ 50 mls/hr 09/17/23 17:00 09/18/23 11:16 Saline 0.9% IV 50 mls/hr .Q20H AUDREY Administration Insulin Aspart 0 unit 09/17/23 21:00 09/19/23 06:33 Insulin Aspart (Novolog) 100 Unit/Ml Vial SQ 4 unit ACHS AUDREY Administration Protocol Insulin Detemir 10 unit 09/19/23 07:00 09/19/23 06:33 Insulin Detemir (Levemir) 100 Unit/Ml Syr SQ 10 unit DAILY@0700 AUDREY Administration Morphine Sulfate 4 mg 09/17/23 16:50 Morphine Sulfate 4 Mg/Ml Syringe IV Q4HR PRN Severe Pain (Scale 7 to 10) Naloxone HCl 0.2 mg 09/17/23 16:50 Naloxone 0.4 Mg/Ml 1 Ml Vial IV Q2M PRN Opioid Reversal Ondansetron HCl 4 mg 09/17/23 16:50 Ondansetron 4 Mg/2 Ml Vial IVP Q8HR PRN Nausea And Vomiting Pantoprazole Sodium 40 mg 09/18/23 09:00 09/18/23 08:03 Pantoprazole 40 Mg/10 Ml Vial IV 40 mg DAILY AUDREY Administration Sodium Bicarbonate 650 mg 09/18/23 11:00 09/18/23 21:30 Sodium Bicarbonate Tab 650 Mg Tab PO 650 mg BID AUDREY Administration Intake and Output 09/18/23 09/19/23 09/19/23 22:59 06:59 14:59 Intake Total 20 10 Output Total 500 Balance -480 10 Intake: IV 20 10 Invasive Line 2 20 10 Output: Urine 500 Other: Voiding Method External Catheter External Catheter # Voids 1 1 Weight 86.4 kg 09/19/23 07:17 09/18/23 07:24
[2023-09-19 11:29] LABS: Glucose,Whole Blood 361 mg/dL (70-110)
--- NOTE | 2023-09-19 12:28 | P.PN ---
Subjective Progress Note Date: 09/19/23 I am following-up with the patient and she states that she feels about the same. Denies any worsening of her neurological issues. Objective - Vital Signs Vital signs: Vital Signs Temp 98.3 F 09/19/23 04:00 Pulse 84 09/19/23 04:00 Resp 18 09/19/23 04:00 BP 121/78 09/19/23 04:00 Pulse Ox 94 L 09/19/23 04:00 FiO2 Intake & Output 09/18/23 09/19/23 09/19/23 18:59 06:59 18:59 Intake Total 900 20 180 Output Total 1350 200 Balance -450 20 -20 Weight 86.183 kg 86.4 kg Intake: IV 20 20 Invasive Line 1 10 Invasive Line 2 10 20 Intake, IV Titration 400 Amount Sodium Chloride 0.9% 1, 400 000 ml @ 50 mls/hr IV . Q20H [facility] Rx#:[id number] Oral 480 180 Output: Urine 1350 200 Other: Voiding Method External Catheter External Catheter # Voids 1 1 - Exam General: Lying in bed and is not in acute distress. HENT: Supple neck. Neuro: The patient is awake, alert, oriented to self, place and time. Is following simple commands. No aphasia or neglect. Pupils are round, equal and reactive to light. Pupils are 3mm bilaterally. Visual preciado are full to confrontation. EOM intact and no nystagmus. No facial weakness. No dysarthria. Tongue is midline and moves side to side without difficulty. Motor: Strength is limited right lower because of pain (states has arthritis). Otherwise strength is 5/5. Sensation: Normal to touch throughout. Reflex: 1+ throughout. Plantars: Mute bilaterally. Some of the work-up in our facility consisted of: Lipid panel: TG 239, chol 241, LDL 148, HDL 47 HBA1c: 9.2 Carotid is reported as no evidence for hemodynamically significant stenosis. Vitamin B12: 1235 TSH: 2.56 Creatnine is 2.26 U/A appears possible underlying UTI MR the brain is reported as small focal acute ischemic infarct involving the right midbrain. Mild age appropriate atrophy. Moderate to marked chronic ischemic white matter demyelination. No mass effect or midline shift midline structure.I personally reviewed the MRI and I feel that ischemic stroke is involving the upper right pontine's and not midbrain. MRA head is reported as no significant abnormality seen. 2-D echo was reported as left ventricular hypertrophy with easily preserved left ventricle systolic function ejection fraction 50% to 55% with an distal apical aneurysm. No clear cut thrombus identified even with ad definitively contrast. In the body of the report it is mentioned that the patient has left ventricular ejection fraction estimated 40-45% - Labs CBC & Chem 7: 09/19/23 07:17 09/19/23 07:17 Labs: Abnormal Lab Results - Last 24 Hours (Table) 09/18/23 09/18/23 09/19/23 Range/Units 16:14 20:24 06:17 WBC (3.8-10.6) k/uL MCV (80.0-100.0) fL Neutrophils # (1.3-7.7) k/uL Sodium (137-145) mmol/L Carbon Dioxide (22-30) mmol/L BUN (7-17) mg/dL Creatinine (0.52-1.04) mg/dL Glucose (74-99) mg/dL POC Glucose (mg/dL) 320 H 289 H 348 H (70-110) mg/dL 09/19/23 09/19/23 09/19/23 Range/Units 07:17 07:17 11:27 WBC 13.3 H (3.8-10.6) k/uL MCV 101.0 H (80.0-100.0) fL Neutrophils # 10.4 H (1.3-7.7) k/uL Sodium 134 L (137-145) mmol/L Carbon Dioxide 19 L (22-30) mmol/L BUN 55 H (7-17) mg/dL Creatinine 2.77 H (0.52-1.04) mg/dL Glucose 249 H (74-99) mg/dL POC Glucose (mg/dL) 361 H (70-110) mg/dL Microbiology - Last 24 Hours (Table) 09/18/23 09:17 Urine Culture - Final Urine,Voided Assessment and Plan Assessment: This is a 77 y/o woman who was transferred from outside facility for escalation of care for her dizziness. She denies seeing a PCP or taking medications. Acute ischemic stroke in brainstem (reported as right small area of midbrain but I felt involving the upper right sergio). Stroke etiology is likely chronic small vessel disease because of multiple risk factors(Newly diagnosed DM, HTN, dyslipidemia. As well age and her gender). No IV thrombolytic since outside window and risk outweigh benefits. 2-D echo preserved left ventricle systolic function ejection fraction 50% to 55% with an distal apical aneurysm. In the body of the report it is mentioned that the patient has left ventricular ejection fraction estimated 40-45% Newly Diagnosed DM Dyslipidemia HTN Possible acute UTI Kidney insufficiency and unsure if acute or chronic Plan: She is started on ASA 81mg and I started Plavix 75mg daily. She is on Lipitor 40mg qhs. She was not on medications prior to this per patient. 2-D echo preserved left ventricle systolic function ejection fraction 50% to 55% with an distal apical aneurysm. In the body of the report it is mentioned that the patient has left ventricular ejection fraction estimated 40-45%. Cardiology is consulted. Continue neuro checks Cardiac monitoring PT and OT are consulted. Cardiology and Nephrology are consulted. Will defer rest of medical management to primary team and other specialist. For DVT prophylaxis: On subq heparin. upon discharge recommend the patient follow up with a neurologist as an outpatient within the 1-2 weeks. The plan is discussed with patient and primary attending. Time with Patient: Less than 30
--- NOTE | 2023-09-19 13:15 | P.PN ---
Subjective Progress Note Date: 09/19/23 Hospital Course: 77-year-old female with no significant past medical history presenting with [facility] rokel[facility] symptoms. At [facility], on initial presentation she was hypertensive, WBC 12.8, hemoglobin 14.6, platelet 294, sodium 133, potassium 4.2, creatinine 2.2, glucose 368, troponin high-sensitivity slightly elevated to 21.6. UA was positive for 1+ leukocyte esterase, positive for nitrites. CT head did not show any acute process. CTA head and neck showed some calcified plaque in the common carotid arteries, no significant stenosis, did see some irregularities and M2 branches bilaterally concerning for atherosclerotic disease versus vasculitis. Patient was moved to our ER. In our ED, temperature was 97.9, pulse 78, respiratory rate 18, blood pressure 160/86, saturating at 9 6% on room air. Echocardiogram shows aneurysmal apex, LV H with easily preserved LV systolic function EF 50 to 55%, with no clear-cut thrombus identified with contrast. Renal ultrasound shows multiple renal cyst. Brain MRI shows small focal acute events ischemic infarct involving the right midbrain. Head MRA shows no abnormalities. Subjective: Patient seen and examined at bedside. No acute events overnight. Denies any further symptoms. Pertinent positives and negatives as discussed above, a complete review of systems was performed and all other systems are negative. Vitals Signs Reviewed. General: nontoxic, no distress, appears at stated age Derm: warm, dry Head: atraumatic, normocephalic, symmetric Eyes: EOMI, no lid lag, anicteric sclera, pupils equal round reactive to light ENT: Nose and ears atraumatic Neck: No thyromegaly, supple Mouth: no lip lesion, mucus membranes moist Cardiovascular: S1S2 reg, no murmur, no edema Lungs: clear to auscultation bilateral, no rhonchi, no rales, no wheeze, no accessory muscle use Abdominal: soft, nontender to palpation, no guarding, no appreciable organomegaly Ext: Right lower extremity weakness due to pain Neuro: CN II-XII grossly intact Psych: Alert, oriented, appropriate affect Data Reviewed Today: Pertinent Labs: WBC 14.1 sodium 136, creatinine 2.26, blood sugars range between 2 76-3 12, LDL 148, total cholesterol 241, urinalysis negative for nitrites, positive for leukocyte esterase, rare bacteria. Imaging: Brain MRI shows small focal acute events ischemic infarct involving the right midbrain. Head MRA shows no abnormalities. Assessment and Plan: Acute CVA Near syncope Hypertension Dyslipidemia Acute renal failure versus chronic kidney disease Newly diagnosed type 2 diabetes, A1c 9.2 Leukocytosis, possibly reactive -Discussed with neurology, started on Plavix 75 daily, continue aspirin 81, atorvastatin 40 -Cardiology note reviewed, no further changes -Nephrology following, BP meds discontinued, on oral Bicarb - Neurochecks, cardiac telemetry - on sliding scale insulin, monitor for hypoglycemia, increase Levemir to 15 units daily - PT/OT DVT ppx: Subcu heparin Code status: Full code Anticipated discharge place: Pending clinical course Anticipated discharge time: Pending clinical course Objective - Vital Signs Vital signs: Vital Signs Temp 98.3 F 09/19/23 04:00 Pulse 84 09/19/23 04:00 Resp 18 09/19/23 04:00 BP 121/78 09/19/23 04:00 Pulse Ox 94 L 09/19/23 04:00 FiO2 Intake & Output 09/18/23 09/19/23 09/19/23 18:59 06:59 18:59 Intake Total 900 20 180 Output Total 1350 200 Balance -450 20 -20 Weight 86.183 kg 86.4 kg Intake: IV 20 20 Invasive Line 1 10 Invasive Line 2 10 20 Intake, IV Titration 400 Amount Sodium Chloride 0.9% 1, 400 000 ml @ 50 mls/hr IV . Q20H [facility] Rx#:[id number] Oral 480 180 Output: Urine 1350 200 Other: Voiding Method External Catheter External Catheter # Voids 1 1 - Labs CBC & Chem 7: 09/19/23 07:17 09/19/23 07:17 Labs: Abnormal Lab Results - Last 24 Hours (Table) 09/18/23 09/18/23 09/19/23 Range/Units 16:14 20:24 06:17 WBC (3.8-10.6) k/uL MCV (80.0-100.0) fL Neutrophils # (1.3-7.7) k/uL Sodium (137-145) mmol/L Carbon Dioxide (22-30) mmol/L BUN (7-17) mg/dL Creatinine (0.52-1.04) mg/dL Glucose (74-99) mg/dL POC Glucose (mg/dL) 320 H 289 H 348 H (70-110) mg/dL 09/19/23 09/19/23 09/19/23 Range/Units 07:17 07:17 11:27 WBC 13.3 H (3.8-10.6) k/uL MCV 101.0 H (80.0-100.0) fL Neutrophils # 10.4 H (1.3-7.7) k/uL Sodium 134 L (137-145) mmol/L Carbon Dioxide 19 L (22-30) mmol/L BUN 55 H (7-17) mg/dL Creatinine 2.77 H (0.52-1.04) mg/dL Glucose 249 H (74-99) mg/dL POC Glucose (mg/dL) 361 H (70-110) mg/dL Microbiology - Last 24 Hours (Table) 09/18/23 09:17 Urine Culture - Final Urine,Voided
[2023-09-19 13:44] VITALS: BMI 32.7
--- NOTE | 2023-09-19 14:00 | P.PN ---
Subjective Progress Note Date: 09/19/23 Patient seen in follow-up for GORDO. Feeling well and no new complaints. Vital signs are stable. General: No acute distress. HEENT: Head exam is unremarkable. LUNGS: No audible rhonchi or wheezes. HEART: Rate and Rhythm are regular. ABDOMEN: Nontender. EXTREMITITES: No edema. Objective - Vital Signs Vital signs: Vital Signs Temp 98.3 F 09/19/23 04:00 Pulse 84 09/19/23 04:00 Resp 18 09/19/23 04:00 BP 121/78 09/19/23 04:00 Pulse Ox 94 L 09/19/23 04:00 FiO2 Intake & Output 09/18/23 09/19/23 09/19/23 18:59 06:59 18:59 Intake Total 900 20 180 Output Total 1350 200 Balance -450 20 -20 Weight 86.183 kg 86.4 kg Intake: IV 20 20 Invasive Line 1 10 Invasive Line 2 10 20 Intake, IV Titration 400 Amount Sodium Chloride 0.9% 1, 400 000 ml @ 50 mls/hr IV . Q20H [facility] Rx#:[id number] Oral 480 180 Output: Urine 1350 200 Other: Voiding Method External Catheter External Catheter # Voids 1 1 - Labs CBC & Chem 7: 09/19/23 07:17 09/19/23 07:17 Labs: Abnormal Lab Results - Last 24 Hours (Table) 09/18/23 09/18/23 09/18/23 Range/Units 09:17 11:51 16:14 WBC (3.8-10.6) k/uL MCV (80.0-100.0) fL Neutrophils # (1.3-7.7) k/uL Sodium (137-145) mmol/L Carbon Dioxide (22-30) mmol/L BUN (7-17) mg/dL Creatinine (0.52-1.04) mg/dL Glucose (74-99) mg/dL POC Glucose (mg/dL) 295 H 320 H (70-110) mg/dL Urine Appearance Cloudy H (Clear) Urine Protein 2+ H (Negative) Urine Glucose (UA) 3+ H (Negative) Urine Blood Trace H (Negative) Ur Leukocyte Esterase Large H (Negative) Urine WBC 96 H (0-5) /hpf Urine Bacteria Rare H (None) /hpf 09/18/23 09/19/23 09/19/23 Range/Units 20:24 06:17 07:17 WBC (3.8-10.6) k/uL MCV (80.0-100.0) fL Neutrophils # (1.3-7.7) k/uL Sodium 134 L (137-145) mmol/L Carbon Dioxide 19 L (22-30) mmol/L BUN 55 H (7-17) mg/dL Creatinine 2.77 H (0.52-1.04) mg/dL Glucose 249 H (74-99) mg/dL POC Glucose (mg/dL) 289 H 348 H (70-110) mg/dL Urine Appearance (Clear) Urine Protein (Negative) Urine Glucose (UA) (Negative) Urine Blood (Negative) Ur Leukocyte Esterase (Negative) Urine WBC (0-5) /hpf Urine Bacteria (None) /hpf 09/19/23 Range/Units 07:17 WBC 13.3 H (3.8-10.6) k/uL MCV 101.0 H (80.0-100.0) fL Neutrophils # 10.4 H (1.3-7.7) k/uL Sodium (137-145) mmol/L Carbon Dioxide (22-30) mmol/L BUN (7-17) mg/dL Creatinine (0.52-1.04) mg/dL Glucose (74-99) mg/dL POC Glucose (mg/dL) (70-110) mg/dL Urine Appearance (Clear) Urine Protein (Negative) Urine Glucose (UA) (Negative) Urine Blood (Negative) Ur Leukocyte Esterase (Negative) Urine WBC (0-5) /hpf Urine Bacteria (None) /hpf Microbiology - Last 24 Hours (Table) 09/18/23 09:17 Urine Culture - Final Urine,Voided Assessment and Plan Plan: Assessment: 1. Acute kidney injury versus chronic kidney disease. Patient's creatinine 2.2, worsening to 2.7 today. Unknown baseline renal function. Patient denies prior history of kidney disease. Patient did receive IV contrast for CT angiogram of the head and neck on September 17, 2023. UA concerning for UTI. Renal US shows cysts consistent with CKD. 2. Acute CVA. Initial CT negative. MRI acute infarcts right midbrain. 3. Benign hypertension. Stable. 4. Diabetes mellitus with hemoglobin A1c elevated at 9.2% this admission. 5. Metabolic acidosis secondary to acute kidney injury and IV fluids. Plan: Maintain gentle IV hydration. Currently on normal saline at 50 cc an hour. Continue oral bicarb. Stop Lisinopril/HCTZ given worsening creatinine. Avoid nephrotoxins. Continue to monitor renal function and urine output. If BP elevated recommend starting Amlodipine 5mg daily.
[2023-09-19 16:35] LABS: Glucose,Whole Blood 353 mg/dL (70-110)
[2023-09-19] MEDS: INSULIN DETEMIR (LEVEMIR) 100 UNIT/ML SYR SQ STA (18:28)
[2023-09-19 20:04] LABS: Glucose,Whole Blood 336 mg/dL (70-110)
[2023-09-20 06:31] LABS: Glucose,Whole Blood 207 mg/dL (70-110)
[2023-09-20] MEDS: INSULIN DETEMIR (LEVEMIR) 100 UNIT/ML SYR SQ SCH (06:35)
[2023-09-20 07:40] LABS: Basophils # (A) 0.1 k/uL (0-0.2); Basophils % (A) 1 %; Eosinophils # (A) 0.1 k/uL (0-0.7); Eosinophils % (A) 1 %; HCT 37.6 % (34.0-46.0); HGB 12.4 gm/dL (11.4-16.0); Lymphocytes # (A) 2.1 k/uL (1.0-4.8); Lymphocytes % (A) 18 %; MCH 32.4 pg (25.0-35.0); MCHC 32.8 g/dL (31.0-37.0); MCV 98.7 fL (80.0-100.0); Mean Platelet Volume 8.6; Monocytes # (A) 0.7 k/uL (0-1.0); Monocytes % (A) 6 %; Neutrophils # (A) 8.5 k/uL (1.3-7.7); Neutrophils % (A) 72 %; Platelet Count 228 k/uL (150-450); RBC 3.81 m/uL (3.80-5.40); WBC 11.7 k/uL (3.8-10.6)
[2023-09-20 08:33] LABS: African American GFR (CKD) 17 (>60 ml/min/1.73 sqM); Anion Gap 12 mmol/L; Blood Urea Nitrogen 60 mg/dL (7-17); Calcium 8.2 mg/dL (8.4-10.2); Carbon Dioxide 15 mmol/L (22-30); Chloride 106 mmol/L (98-107); Glucose 196 mg/dL (74-99); Magnesium 2.1 mg/dL (1.6-2.3); Non-African American GFR(CKD) 15 (>60 ml/min/1.73 sqM); Potassium 4.2 mmol/L (3.5-5.1); Sodium 133 mmol/L (137-145)
--- NOTE | 2023-09-20 10:56 | P.PN ---
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 We have been asked to evaluate the patient for near syncope. Patient states that she was at [place] visiting her who was there on long-term care and she started having dizziness ended up falling when she was getting up to the bathroom and ended up falling down and was then treated at [place]. She also had a second episode with dizziness fatigue and some nausea and vomiting. [facility] found to have a [facility]A Per MRI of the brain that revealed a small focal acute ischemic infarct involving the right midbrain. Otherwise age-related appropriate atrophy. Patient denies having any weakness on one side of her body, no difficulty with her speech. Patient had also presented to [place] with hypertension. Upon arrival to the emergency center at [facility], blood pressure 170/103. Patient has been started on aspirin 81 mg daily, atorvastatin 40 mg at bedtime, heparin subcu, lisinopril/hydrochlorothiazide and sodium bicarb. EKG sinus rhythm with nonspecific ST changes Echocardiogram reveals LVH with preserved LV systolic function EF 50 to 55% with distal apical aneurysm. No clear-cut thrombus identified even with Definity. Laboratory studies: WBC initially 14.1 now 13.3, hemoglobin 13.3. Sodium 134 potassium 4.5. BUN 55 and creatinine 2.77. Blood sugar 249. Alkaline phosphatase 130 otherwise liver function test are normal. Troponin negative x 2. Triglycerides 239, cholesterol 241, LDL 148, HDL 44. Urinalysis leukoesterase large, WBCs 96. A1c 9.2. Home cardiac medications: None 09/19 Patient is seen today in follow-up. Blood pressure is better controlled at 120/79 heart rate is in the 70s and 80s, pulse ox 96% on room air. Repeat renal function reveals BUN of 60 creatinine 2.85. Patient is followed by nephrology. Physical examination: Gen: This is a 77-year-old female in no acute distress VS: reviewed blood pressure 121/78, heart rate 84, pulse ox 94% on room air. HEENT: Head is atraumatic, normocephalic. Pupils equal, round. Sclerae is anicteric. NECK: Supple. No JVD. LUNGS: Clear to auscultation. No wheezes or rhonchi. No intercostal retractions. HEART: Regular rate and rhythm. No murmur. ABDOMEN: Soft No tenderness. EXTREMITIES: No pedal edema. No calf tenderness. NEUROLOGICAL: Patient is awake, alert and oriented x3. Assessment: CVA Dizziness Acute kidney injury Uncontrolled hypertension Diabetes mellitus type 2, A1c 9.2, new diagnosis Hyperlipidemia Urinary tract infection Plan: Continue current cardiac medications Control hypertension Further recommendations to follow based upon clinical course Thank you kindly for this consultation. Nurse practitioner note has been reviewed, I agree with documented findings and plan of care. Patient was seen and examined. Objective - Vital Signs Vital signs: Vital Signs Temp 98.3 F 09/20/23 04:00 Pulse 78 09/20/23 04:00 Resp 19 09/20/23 04:00 BP 120/79 09/20/23 04:00 Pulse Ox 96 09/20/23 04:00 FiO2 Intake & Output 09/19/23 09/20/23 09/20/23 18:59 06:59 18:59 Intake Total 560 20 Output Total 800 500 Balance -240 -480 Weight 86.4 kg 94 kg Intake: IV 20 20 Invasive Line 2 20 20 Oral 540 Output: Urine 800 500 Other: Voiding Method External Catheter - Labs CBC & Chem 7: 09/20/23 07:01 09/20/23 07:01 Labs: Abnormal Lab Results - Last 24 Hours (Table) 09/19/23 09/19/23 09/19/23 Range/Units 11:27 16:33 20:02 WBC (3.8-10.6) k/uL Neutrophils # (1.3-7.7) k/uL Sodium (137-145) mmol/L Carbon Dioxide (22-30) mmol/L BUN (7-17) mg/dL Creatinine (0.52-1.04) mg/dL Glucose (74-99) mg/dL POC Glucose (mg/dL) 361 H 353 H 336 H (70-110) mg/dL Calcium (8.4-10.2) mg/dL 09/20/23 09/20/23 09/20/23 Range/Units 06:27 07:01 07:01 WBC 11.7 H (3.8-10.6) k/uL Neutrophils # 8.5 H (1.3-7.7) k/uL Sodium 133 L (137-145) mmol/L Carbon Dioxide 15 L (22-30) mmol/L BUN 60 H (7-17) mg/dL Creatinine 2.85 H (0.52-1.04) mg/dL Glucose 196 H (74-99) mg/dL POC Glucose (mg/dL) 207 H (70-110) mg/dL Calcium 8.2 L (8.4-10.2) mg/dL Microbiology - Last 24 Hours (Table) 09/18/23 09:17 Urine Culture - Final Urine,Voided
--- NOTE | 2023-09-20 10:57 | P.PN ---
Subjective Progress Note Date: 09/20/23 Patient seen in follow-up for GORDO. Feeling well and no new complaints. Vital signs are stable. General: No acute distress. HEENT: Head exam is unremarkable. LUNGS: No audible rhonchi or wheezes. HEART: Rate and Rhythm are regular. ABDOMEN: Nontender. EXTREMITITES: No edema. Objective - Vital Signs Vital signs: Vital Signs Temp 98.3 F 09/20/23 04:00 Pulse 78 09/20/23 04:00 Resp 19 09/20/23 04:00 BP 120/79 09/20/23 04:00 Pulse Ox 96 09/20/23 04:00 FiO2 Intake & Output 09/19/23 09/20/23 09/20/23 18:59 06:59 18:59 Intake Total 560 20 240 Output Total 800 500 Balance -240 -480 240 Weight 86.4 kg 94 kg Intake: IV 20 20 Invasive Line 2 20 20 Oral 540 240 Output: Urine 800 500 Other: Voiding Method External Catheter - Labs CBC & Chem 7: 09/20/23 07:01 09/20/23 07:01 Labs: Abnormal Lab Results - Last 24 Hours (Table) 09/19/23 09/19/23 09/19/23 Range/Units 11:27 16:33 20:02 WBC (3.8-10.6) k/uL Neutrophils # (1.3-7.7) k/uL Sodium (137-145) mmol/L Carbon Dioxide (22-30) mmol/L BUN (7-17) mg/dL Creatinine (0.52-1.04) mg/dL Glucose (74-99) mg/dL POC Glucose (mg/dL) 361 H 353 H 336 H (70-110) mg/dL Calcium (8.4-10.2) mg/dL 09/20/23 09/20/23 09/20/23 Range/Units 06:27 07:01 07:01 WBC 11.7 H (3.8-10.6) k/uL Neutrophils # 8.5 H (1.3-7.7) k/uL Sodium 133 L (137-145) mmol/L Carbon Dioxide 15 L (22-30) mmol/L BUN 60 H (7-17) mg/dL Creatinine 2.85 H (0.52-1.04) mg/dL Glucose 196 H (74-99) mg/dL POC Glucose (mg/dL) 207 H (70-110) mg/dL Calcium 8.2 L (8.4-10.2) mg/dL Microbiology - Last 24 Hours (Table) 09/18/23 09:17 Urine Culture - Final Urine,Voided Assessment and Plan Plan: Assessment: 1. Acute kidney injury versus chronic kidney disease. Patient's creatinine 2.2, stable at 2.8 today. Unknown baseline renal function. Patient denies prior history of kidney disease. Patient did receive IV contrast for CT angiogram of the head and neck on September 17, 2023. UA concerning for UTI. Renal US shows cysts consistent with CKD. 2. Acute CVA. Initial CT negative. MRI acute infarcts right midbrain. 3. Benign hypertension. Stable. 4. Diabetes mellitus with hemoglobin A1c elevated at 9.2% this admission. 5. Metabolic acidosis secondary to acute kidney injury and IV fluids. Plan: Maintain gentle IV hydration. Currently on normal saline at 50 cc an hour. Continue oral bicarb. Hold Lisinopril/HCTZ given worsening creatinine. Avoid nephrotoxins. Continue to monitor renal function and urine output. If BP elevated recommend starting Amlodipine 5mg daily. If renal function remains stable or improved over next 24- hrs can be discharged with follow-up 1-2 weeks.
--- NOTE | 2023-09-20 11:03 | P.PN ---
Subjective Progress Note Date: 09/20/23 I am following-up with patient and feels about the same. No new neurological issues. Objective - Vital Signs Vital signs: Vital Signs Temp 97.6 F 09/20/23 08:00 Pulse 75 09/20/23 08:00 Resp 19 09/20/23 08:00 BP 115/70 09/20/23 08:00 Pulse Ox 95 09/20/23 08:00 FiO2 Intake & Output 09/19/23 09/20/23 09/20/23 18:59 06:59 18:59 Intake Total 560 20 240 Output Total 800 500 300 Balance -240 -480 -60 Weight 86.4 kg 94 kg Intake: IV 20 20 Invasive Line 2 20 20 Oral 540 240 Output: Urine 800 500 300 Other: Voiding Method External Catheter - Exam General: Lying in bed and is not in acute distress. HENT: Supple neck. Neuro: The patient is awake, alert, oriented to self, place and time. Is following simple commands. No aphasia or neglect. Pupils are round, equal and reactive to light. Pupils are 3mm bilaterally. Visual preciado are full to confrontation. EOM intact and no nystagmus. No facial weakness. No dysarthria. Tongue is midline and moves side to side without difficulty. Motor: Strength is limited right lower because of pain (states has arthritis). Otherwise strength is 5/5. Sensation: Normal to touch throughout. Reflex: 1+ throughout. Plantars: Mute bilaterally. Some of the work-up in our facility consisted of: Lipid panel: TG 239, chol 241, LDL 148, HDL 47 HBA1c: 9.2 Carotid is reported as no evidence for hemodynamically significant stenosis. Vitamin B12: 1235 TSH: 2.56 Creatnine is 2.26 U/A appears possible underlying UTI MR the brain is reported as small focal acute ischemic infarct involving the right midbrain. Mild age appropriate atrophy. Moderate to marked chronic ischemic white matter demyelination. No mass effect or midline shift midline structure.I personally reviewed the MRI and I feel that ischemic stroke is involving the upper right pontine's and not midbrain. MRA head is reported as no significant abnormality seen. 2-D echo was reported as left ventricular hypertrophy with easily preserved left ventricle systolic function ejection fraction 50% to 55% with an distal apical aneurysm. No clear cut thrombus identified even with ad definitively contrast. In the body of the report it is mentioned that the patient has left ventricular ejection fraction estimated 40-45% - Labs CBC & Chem 7: 09/20/23 07:01 09/20/23 07:01 Labs: Abnormal Lab Results - Last 24 Hours (Table) 09/19/23 09/19/23 09/19/23 Range/Units 11:27 16:33 20:02 WBC (3.8-10.6) k/uL Neutrophils # (1.3-7.7) k/uL Sodium (137-145) mmol/L Carbon Dioxide (22-30) mmol/L BUN (7-17) mg/dL Creatinine (0.52-1.04) mg/dL Glucose (74-99) mg/dL POC Glucose (mg/dL) 361 H 353 H 336 H (70-110) mg/dL Calcium (8.4-10.2) mg/dL 09/20/23 09/20/23 09/20/23 Range/Units 06:27 07:01 07:01 WBC 11.7 H (3.8-10.6) k/uL Neutrophils # 8.5 H (1.3-7.7) k/uL Sodium 133 L (137-145) mmol/L Carbon Dioxide 15 L (22-30) mmol/L BUN 60 H (7-17) mg/dL Creatinine 2.85 H (0.52-1.04) mg/dL Glucose 196 H (74-99) mg/dL POC Glucose (mg/dL) 207 H (70-110) mg/dL Calcium 8.2 L (8.4-10.2) mg/dL Microbiology - Last 24 Hours (Table) 09/18/23 09:17 Urine Culture - Final Urine,Voided Assessment and Plan Assessment: This is a 77 y/o woman who was transferred from outside facility for escalation of care for her dizziness. She denies seeing a PCP or taking medications. Acute ischemic stroke in brainstem (reported as right small area of midbrain but I felt involving the upper right sergio). Stroke etiology is likely chronic small vessel disease because of multiple risk factors(Newly diagnosed DM, HTN, dyslipidemia. As well age and her gender). No IV thrombolytic since outside window and risk outweigh benefits. 2-D echo preserved left ventricle systolic function ejection fraction 50% to 55% with an distal apical aneurysm. In the body of the report it is mentioned that the patient has left ventricular ejection fraction estimated 40-45% Newly Diagnosed DM Dyslipidemia HTN Possible acute UTI Kidney insufficiency and unsure if acute or chronic Plan: She is started on ASA 81mg and I started Plavix 75mg daily. She is on Lipitor 40mg qhs. She was not on medications prior to this per patient. 2-D echo preserved left ventricle systolic function ejection fraction 50% to 55% with an distal apical aneurysm. In the body of the report it is mentioned that the patient has left ventricular ejection fraction estimated 40-45%. Cardiology is consulted. Continue neuro checks Cardiac monitoring PT and OT are consulted. Cardiology and Nephrology are consulted. Will defer rest of medical management to primary team and other specialist. For DVT prophylaxis: On subq heparin. upon discharge recommend the patient follow up with a neurologist as an outpatient within the 1-2 weeks. The plan is discussed with patient and primary attending. There is no further neurological work-up. Will sign off. Please reconsult if needed. Dr. Chu will resume neurology service if needed. Time with Patient: Less than 30
[2023-09-20 11:18] LABS: Glucose,Whole Blood 201 mg/dL (70-110)
--- NOTE | 2023-09-20 13:28 | P.PN ---
Subjective Progress Note Date: 09/20/23 Hospital Course: 77-year-old female with no significant past medical history presenting with [facility] rokelike symptoms. At [facility], on initial presentation she was hypertensive, WBC 12.8, hemoglobin 14.6, platelet 294, sodium 133, potassium 4.2, creatinine 2.2, glucose 368, troponin high-sensitivity slightly elevated to 21.6. UA was positive for 1+ leukocyte esterase, positive for nitrites. CT head did not show any acute process. CTA head and neck showed some calcified plaque in the common carotid arteries, no significant stenosis, did see some irregularities and M2 branches bilaterally concerning for atherosclerotic disease versus vasculitis. Patient was moved to our ER. In our ED, temperature was 97.9, pulse 78, respiratory rate 18, blood pressure 160/86, saturating at 9 6% on room air. Echocardiogram shows aneurysmal apex, LV H with easily preserved LV systolic function EF 50 to 55%, with no clear-cut thrombus identified with contrast. Renal ultrasound shows multiple renal cyst. Brain MRI shows small focal acute events ischemic infarct involving the right midbrain. Head MRA shows no abnormalities. Subjective: Patient seen and examined at bedside. No acute events overnight. Denies any further symptoms. Pertinent positives and negatives as discussed above, a complete review of systems was performed and all other systems are negative. Vitals Signs Reviewed. General: nontoxic, no distress, appears at stated age Derm: warm, dry Head: atraumatic, normocephalic, symmetric Eyes: EOMI, no lid lag, anicteric sclera, pupils equal round reactive to light ENT: Nose and ears atraumatic Neck: No thyromegaly, supple Mouth: no lip lesion, mucus membranes moist Cardiovascular: S1S2 reg, no murmur, no edema Lungs: clear to auscultation bilateral, no rhonchi, no rales, no wheeze, no accessory muscle use Abdominal: soft, nontender to palpation, no guarding, no appreciable organomegaly Ext: Right lower extremity weakness due to pain Neuro: CN II-XII grossly intact Psych: Alert, oriented, appropriate affect Data Reviewed Today: Pertinent Labs: WBC 11.7, hemoglobin 12.4, sodium 133, bicarb 15, creatinine 2.85, blood sugars range between 1 96-3 36 Imaging: No new imaging Assessment and Plan: Acute CVA Near syncope Hypertension Dyslipidemia Acute kidney injury on likely chronic kidney disease Newly diagnosed type 2 diabetes, A1c 9.2 Leukocytosis, possibly reactive resolving -Discussed with neurology, continue on Plavix 75 daily, continue aspirin 81, atorvastatin 40 -Cardiology note reviewed, no further changes -Nephrology following, BP meds discontinued, on oral Bicarb, if BP meds needed, use amlodipine - Neurochecks, cardiac telemetry - on sliding scale insulin, monitor for hypoglycemia, increase Levemir to 25 units daily - PT/OT DVT ppx: Subcu heparin Code status: Full code Anticipated discharge place: Pending clinical course Anticipated discharge time: Pending clinical course Objective - Vital Signs Vital signs: Vital Signs Temp 97.6 F 09/20/23 08:00 Pulse 71 09/20/23 12:00 Resp 19 09/20/23 12:00 BP 125/78 09/20/23 12:00 Pulse Ox 96 09/20/23 12:00 FiO2 Intake & Output 09/19/23 09/20/23 09/20/23 18:59 06:59 18:59 Intake Total 560 20 250 Output Total 800 500 300 Balance -240 -480 -50 Weight 86.4 kg 94 kg Intake: IV 20 20 10 Invasive Line 2 20 20 10 Oral 540 240 Output: Urine 800 500 300 Other: Voiding Method External Catheter - Labs CBC & Chem 7: 09/20/23 07:01 09/20/23 07:01 Labs: Abnormal Lab Results - Last 24 Hours (Table) 09/19/23 09/19/23 09/20/23 Range/Units 16:33 20:02 06:27 WBC (3.8-10.6) k/uL Neutrophils # (1.3-7.7) k/uL Sodium (137-145) mmol/L Carbon Dioxide (22-30) mmol/L BUN (7-17) mg/dL Creatinine (0.52-1.04) mg/dL Glucose (74-99) mg/dL POC Glucose (mg/dL) 353 H 336 H 207 H (70-110) mg/dL Calcium (8.4-10.2) mg/dL 09/20/23 09/20/23 09/20/23 Range/Units 07:01 07:01 11:16 WBC 11.7 H (3.8-10.6) k/uL Neutrophils # 8.5 H (1.3-7.7) k/uL Sodium 133 L (137-145) mmol/L Carbon Dioxide 15 L (22-30) mmol/L BUN 60 H (7-17) mg/dL Creatinine 2.85 H (0.52-1.04) mg/dL Glucose 196 H (74-99) mg/dL POC Glucose (mg/dL) 201 H (70-110) mg/dL Calcium 8.2 L (8.4-10.2) mg/dL Microbiology - Last 24 Hours (Table) 09/18/23 09:17 Urine Culture - Final Urine,Voided
[2023-09-20] MEDS: INSULIN DETEMIR (LEVEMIR) 100 UNIT/ML SYR SQ STA (14:15)
[2023-09-20 16:10] LABS: Glucose,Whole Blood 235 mg/dL (70-110)
[2023-09-20 20:21] LABS: Glucose,Whole Blood 208 mg/dL (70-110)
[2023-09-21 06:06] LABS: Glucose,Whole Blood 184 mg/dL (70-110)
[2023-09-21] MEDS: INSULIN DETEMIR (LEVEMIR) 100 UNIT/ML SYR SQ SCH (06:49)
[2023-09-21 08:49] LABS: Calcium 8.7 mg/dL (8.7-10.3); Carbon Dioxide 16.5 mmol/L (21.6-31.8); Chloride 99 mmol/L (96-109); Glucose 189 mg/dL (70-110); Magnesium 2.6 mg/dL (1.5-2.4); Potassium 5.1 mmol/L (3.5-5.5); Sodium 134 mmol/L (135-145)
[2023-09-21 11:45] LABS: Glucose,Whole Blood 207 mg/dL (70-110)
--- NOTE | 2023-09-21 13:39 | P.PN ---
Subjective patient is seen for follow-up for acute kidney injury. No significant complaints today. serum creatinine increased to 3.2. 24 hour urine output at 1500 mL Maintained on saline at 50 mL an hour Objective - Vital Signs Vital signs: Vital Signs Temp 97.5 F L 09/21/23 07:09 Pulse 80 09/21/23 07:09 Resp 17 09/21/23 07:09 BP 127/77 09/21/23 07:09 Pulse Ox 95 09/21/23 07:09 FiO2 Intake & Output 09/20/23 09/21/23 09/21/23 18:59 06:59 18:59 Intake Total 850 400 Output Total 300 1200 400 Balance 550 -800 -400 Intake: IV 10 Invasive Line 2 10 Intake, IV Titration 600 Amount Sodium Chloride 0.9% 1, 600 000 ml @ 50 mls/hr IV . Q20H AUDREY Rx#:[id number] Oral 240 400 Output: Urine 300 1200 400 Other: # Bowel Movements 1 - Exam patient is awake, comfortable, no acute distress. Examination of the heart S1 and S2 Examination of the lungs bilateral breath sounds are heard Abdomen is soft nontender Examination of lower extremity shows no significant edema - Labs CBC & Chem 7: 09/20/23 07:01 09/21/23 04:48 Labs: Abnormal Lab Results - Last 24 Hours (Table) 09/20/23 09/20/23 09/21/23 Range/Units 16:09 20:20 04:48 Sodium 134 L (135-145) mmol/L Carbon Dioxide 16.5 L (21.6-31.8) mmol/L Anion Gap 18.50 H (4.00-12.00) mmol/L BUN 64.0 H (9.0-27.0) mg/dL Creatinine 3.2 H (0.6-1.5) mg/dL Est GFR (CKD-EPI) 14 L (>=60) Glucose 189 H (70-110) mg/dL POC Glucose (mg/dL) 235 H 208 H (70-110) mg/dL Magnesium 2.6 H (1.5-2.4) mg/dL 09/21/23 09/21/23 Range/Units 06:04 11:44 Sodium (135-145) mmol/L Carbon Dioxide (21.6-31.8) mmol/L Anion Gap (4.00-12.00) mmol/L BUN (9.0-27.0) mg/dL Creatinine (0.6-1.5) mg/dL Est GFR (CKD-EPI) (>=60) Glucose (70-110) mg/dL POC Glucose (mg/dL) 184 H 207 H (70-110) mg/dL Magnesium (1.5-2.4) mg/dL Assessment and Plan Assessment: 1. Acute kidney injury versus chronic kidney disease. Patient's creatinine 2.2, stable at 2.8 today. Unknown baseline renal function. Patient denies prior history of kidney disease. Patient did receive IV contrast for CT angiogram of the head and neck on September 17, 2023. UA concerning for UTI. Renal US shows cysts consistent with CKD. maintained on gentle IV hydration. 2. Acute CVA. Initial CT negative. MRI acute infarcts right midbrain. 3. Benign hypertension. Stable. 4. Diabetes mellitus with hemoglobin A1c elevated at 9.2% this admission. 5. Metabolic acidosis secondary to acute kidney injury and IV fluids. Plan: continue with IV fluids Continue oral sodium bicarb Repeat labs in a.m. Avoid nephrotoxic agents.
--- NOTE | 2023-09-21 14:00 | P.PN ---
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 We have been asked to evaluate the patient for near syncope. Patient states that she was at [place] visiting her who was there on long-term care and she started having dizziness ended up falling when she was getting up to the bathroom and ended up falling down and was then treated at [place]. She also had a second episode with dizziness fatigue and some nausea and vomiting. Patient has subsequently been transferred to [facility] underwent neuro evaluation found to have a CVA Per MRI of the brain that revealed a small focal acute ischemic infarct involving the right midbrain. Otherwise age-related appropriate atrophy. Patient denies having any weakness on one side of her body, no difficulty with her speech. Patient had also presented to [place] with hypertension. Upon arrival to the emergency center at [facility], blood pressure 170/103. Patient has been started on aspirin 81 mg daily, atorvastatin 40 mg at bedtime, heparin subcu, lisinopril/hydrochlorothiazide and sodium bicarb. EKG sinus rhythm with nonspecific ST changes Echocardiogram reveals LVH with preserved LV systolic function EF 50 to 55% with distal apical aneurysm. No clear-cut thrombus identified even with Definity. Laboratory studies: WBC initially 14.1 now 13.3, hemoglobin 13.3. Sodium 134 potassium 4.5. BUN 55 and creatinine 2.77. Blood sugar 249. Alkaline phosphatase 130 otherwise liver function test are normal. Troponin negative x 2. Triglycerides 239, cholesterol 241, LDL 148, HDL 44. Urinalysis leukoesterase large, WBCs 96. A1c 9.2. Home cardiac medications: None 09/19 Patient is seen today in follow-up. Blood pressure is better controlled at 120/79 heart rate is in the 70s and 80s, pulse ox 96% on room air. Repeat renal function reveals BUN of 60 creatinine 2.85. Patient is followed by nephrology. 09/20 Patient has been transferred to the [facility] floor. Blood pressure has been well-controlled despite being off lisinopril hydrochlorothiazide due to renal failure. Blood pressures have been running in the 120s systolic and diastolic in the 70s, heart rate is 80, pulse ox 95% on room air. Repeat blood work reveals worsening renal function with BUN of 64 creatinine 3.2. Sodium 134, potassium 5.1. Physical examination: Gen: This is a 77-year-old female in no acute distress VS: reviewed blood pressure 121/78, heart rate 84, pulse ox 94% on room air. HEENT: Head is atraumatic, normocephalic. Pupils equal, round. Sclerae is anicteric. NECK: Supple. No JVD. LUNGS: Clear to auscultation. No wheezes or rhonchi. No intercostal retractions. HEART: Regular rate and rhythm. No murmur. ABDOMEN: Soft No tenderness. EXTREMITIES: No pedal edema. No calf tenderness. NEUROLOGICAL: Patient is awake, alert and oriented x3. Assessment: CVA Dizziness Acute kidney injury Uncontrolled hypertension Diabetes mellitus type 2, A1c 9.2, new diagnosis Hyperlipidemia Urinary tract infection Plan: Continue current cardiac medications Monitor hypertension Cardiology will sign off this case and follow on an as-needed basis. Please reconsult for any new concerns. Patient may follow-up in the office in one to 2 weeks. Nurse practitioner note has been reviewed, I agree with documented findings and plan of care. Patient was seen and examined. Objective - Vital Signs Vital signs: Vital Signs Temp 97.5 F L 09/21/23 07:09 Pulse 80 09/21/23 07:09 Resp 17 09/21/23 07:09 BP 127/77 09/21/23 07:09 Pulse Ox 95 09/21/23 07:09 FiO2 Intake & Output 09/20/23 09/21/23 09/21/23 18:59 06:59 18:59 Intake Total 850 400 Output Total 300 1200 Balance 550 -800 Intake: IV 10 Invasive Line 2 10 Intake, IV Titration 600 Amount Sodium Chloride 0.9% 1, 600 000 ml @ 50 mls/hr IV . Q20H AUDREY Rx#:[id number] Oral 240 400 Output: Urine 300 1200 - Labs CBC & Chem 7: 09/20/23 07:01 09/21/23 04:48 Labs: Abnormal Lab Results - Last 24 Hours (Table) 09/20/23 09/20/23 09/20/23 Range/Units 11:16 16:09 20:20 Sodium (135-145) mmol/L Carbon Dioxide (21.6-31.8) mmol/L Anion Gap (4.00-12.00) mmol/L BUN (9.0-27.0) mg/dL Creatinine (0.6-1.5) mg/dL Est GFR (CKD-EPI) (>=60) Glucose (70-110) mg/dL POC Glucose (mg/dL) 201 H 235 H 208 H (70-110) mg/dL Magnesium (1.5-2.4) mg/dL 09/21/23 09/21/23 Range/Units 04:48 06:04 Sodium 134 L (135-145) mmol/L Carbon Dioxide 16.5 L (21.6-31.8) mmol/L Anion Gap 18.50 H (4.00-12.00) mmol/L BUN 64.0 H (9.0-27.0) mg/dL Creatinine 3.2 H (0.6-1.5) mg/dL Est GFR (CKD-EPI) 14 L (>=60) Glucose 189 H (70-110) mg/dL POC Glucose (mg/dL) 184 H (70-110) mg/dL Magnesium 2.6 H (1.5-2.4) mg/dL
--- NOTE | 2023-09-21 14:05 | P.PN ---
Subjective Progress Note Date: 09/21/23 Hospital Course: 77-year-old female with no significant past medical history presenting with st rokelike symptoms. At [facility], on initial presentation she was hypertensive, WBC 12.8, hemoglobin 14.6, platelet 294, sodium 133, potassium 4.2, creatinine 2.2, glucose 368, troponin high-sensitivity slightly elevated to 21.6. UA was positive for 1+ leukocyte esterase, positive for nitrites. CT head did not show any acute process. CTA head and neck showed some calcified plaque in the common carotid arteries, no significant stenosis, did see some irregularities and M2 branches bilaterally concerning for atherosclerotic disease versus vasculitis. Patient was moved to our ER. In our ED, temperature was 97.9, pulse 78, respiratory rate 18, blood pressure 160/86, saturating at 9 6% on room air. Echocardiogram shows aneurysmal apex, LV H with easily preserved LV systolic function EF 50 to 55%, with no clear-cut thrombus identified with contrast. Renal ultrasound shows multiple renal cyst. Brain MRI shows small focal acute events ischemic infarct involving the right midbrain. Head MRA shows no abnormalities. In rehab. Subjective: Patient seen and examined at bedside. No acute events overnight. Denies any further symptoms. Pertinent positives and negatives as discussed above, a complete review of systems was performed and all other systems are negative. Vitals Signs Reviewed. General: nontoxic, no distress, appears at stated age Derm: warm, dry Head: atraumatic, normocephalic, symmetric Eyes: EOMI, no lid lag, anicteric sclera, pupils equal round reactive to light ENT: Nose and ears atraumatic Neck: No thyromegaly, supple Mouth: no lip lesion, mucus membranes moist Cardiovascular: S1S2 reg, no murmur, no edema Lungs: clear to auscultation bilateral, no rhonchi, no rales, no wheeze, no accessory muscle use Abdominal: soft, nontender to palpation, no guarding, no appreciable organomegaly Ext: Right lower extremity weakness due to pain Neuro: CN II-XII grossly intact Psych: Alert, oriented, appropriate affect Data Reviewed Today: Pertinent Labs: Sodium 134, creatinine 0.2, glucose range between 1 84-2 08, magnesium 2.6 Imaging: No new imaging Assessment and Plan: Acute CVA Near syncope Hypertension Dyslipidemia Acute kidney injury on likely chronic kidney disease Newly diagnosed type 2 diabetes, A1c 9.2 Leukocytosis, possibly reactive resolving -Neurology following continue on Plavix 75 daily, continue aspirin 81, atorvastatin 40 -Cardiology note reviewed, no further changes, signed off -Nephrology note reviewed, continue sodium bicarb 650 twice daily, continue daily saline at 50 cc an hour. Repeat BMP tomorrow - Neurochecks, cardiac telemetry - on sliding scale insulin, monitor for hypoglycemia, increase Levemir to 25 units daily - PT/OT DVT ppx: Subcu heparin Code status: Full code Anticipated discharge place: Rehab Anticipated discharge time: Pending clinical course Objective - Vital Signs Vital signs: Vital Signs Temp 97.5 F L 09/21/23 07:09 Pulse 80 09/21/23 07:09 Resp 17 09/21/23 07:09 BP 127/77 09/21/23 07:09 Pulse Ox 95 09/21/23 07:09 FiO2 Intake & Output 09/20/23 09/21/23 09/21/23 18:59 06:59 18:59 Intake Total 850 400 Output Total 300 1200 400 Balance 550 -800 -400 Intake: IV 10 Invasive Line 2 10 Intake, IV Titration 600 Amount Sodium Chloride 0.9% 1, 600 000 ml @ 50 mls/hr IV . Q20H AUDREY Rx#:[id number] Oral 240 400 Output: Urine 300 1200 400 Other: # Bowel Movements 1 - Labs CBC & Chem 7: 09/20/23 07:01 09/21/23 04:48 Labs: Abnormal Lab Results - Last 24 Hours (Table) 09/20/23 09/20/23 09/21/23 Range/Units 16:09 20:20 04:48 Sodium 134 L (135-145) mmol/L Carbon Dioxide 16.5 L (21.6-31.8) mmol/L Anion Gap 18.50 H (4.00-12.00) mmol/L BUN 64.0 H (9.0-27.0) mg/dL Creatinine 3.2 H (0.6-1.5) mg/dL Est GFR (CKD-EPI) 14 L (>=60) Glucose 189 H (70-110) mg/dL POC Glucose (mg/dL) 235 H 208 H (70-110) mg/dL Magnesium 2.6 H (1.5-2.4) mg/dL 09/21/23 09/21/23 Range/Units 06:04 11:44 Sodium (135-145) mmol/L Carbon Dioxide (21.6-31.8) mmol/L Anion Gap (4.00-12.00) mmol/L BUN (9.0-27.0) mg/dL Creatinine (0.6-1.5) mg/dL Est GFR (CKD-EPI) (>=60) Glucose (70-110) mg/dL POC Glucose (mg/dL) 184 H 207 H (70-110) mg/dL Magnesium (1.5-2.4) mg/dL
[2023-09-21 16:36] LABS: Glucose,Whole Blood 206 mg/dL (70-110)
--- NOTE | 2023-09-21 16:49 | XR ---
EXAMINATION TYPE: XR chest 1V portable DATE OF EXAM: 09/21/2023 3:21 PM CLINICAL INDICATION:Female, 77 years old with history of leukocytosis; [facility] COMPARISON: None TECHNIQUE: XR chest 1V portable Frontal view of the chest. FINDINGS: Lungs/Pleura: There is no evidence of pleural effusion, focal consolidation, or pneumothorax. Pulmonary vascularity: Unremarkable. Heart/mediastinum: Cardiomediastinal silhouette is unremarkable. Musculoskeletal: No acute osseous pathology. IMPRESSION: No acute cardiopulmonary disease/process.
[2023-09-21 20:14] LABS: Glucose,Whole Blood 163 mg/dL (70-110)
[2023-09-22 06:08] LABS: Glucose,Whole Blood 224 mg/dL (70-110)
[2023-09-22 06:55] LABS: African American GFR (CKD) 18 (>60 ml/min/1.73 sqM); Anion Gap 10 mmol/L; Blood Urea Nitrogen 68 mg/dL (7-17); Calcium 8.5 mg/dL (8.4-10.2); Carbon Dioxide 16 mmol/L (22-30); Chloride 108 mmol/L (98-107); Glucose 191 mg/dL (74-99); Magnesium 2.5 mg/dL (1.6-2.3); Non-African American GFR(CKD) 15 (>60 ml/min/1.73 sqM); Potassium 4.9 mmol/L (3.5-5.1); Sodium 134 mmol/L (137-145)
[2023-09-22 07:59] VITALS: BP 143/78; PULSE 78; RESP 17; TEMP 98.7
--- NOTE | 2023-09-22 10:58 | P.DS ---
Providers Date of admission: 09/17/23 16:50 Expected date of discharge: 09/22/23 Attending physician: Melia Graham MD Consults: 09/17/23 16:50 Consult Physician Routine Consulting Provider: Lorenzo Alexis Consult Reason/Comments: vertigo Do you want consulting provider notified?: Yes Consult Physician Routine Consulting Provider: Raphael Temple Consult Reason/Comments: GORDO Do you want consulting provider notified?: Yes 09/18/23 13:45 Consult Physician Routine Consulting Provider: Royce Alarcon Consult Reason/Comments: near syncope Do you want consulting provider notified?: Yes Primary care physician: Stated None Hospital Course: Discharge Diagnosis: Acute CVA Near syncope Hypertension Dyslipidemia Acute kidney injury on chronic kidney disease Newly diagnosed type 2 diabetes, A1c 9.2 Leukocytosis, reactive Hospital Course: 77-year-old female with no significant past medical history presenting with strokelike symptoms. At [facility], on initial presentation she was hypertensive, WBC 12.8, hemoglobin 14.6, platelet 294, sodium 133, potassium 4.2, creatinine 2.2, glucose 368, troponin high-sensitivity slightly elevated to 21.6. UA was positive for 1+ leukocyte esterase, positive for nitrites. CT head did not show any acute process. CTA head and neck showed some calcified plaque in the common carotid arteries, no significant stenosis, did see some irregularities and M2 branches bilaterally concerning for atherosclerotic disease versus vasculitis. Patient was moved to our ER. In our ED, temperature was 97.9, pulse 78, respiratory rate 18, blood pressure 160/86, saturating at 96% on room air. Echocardiogram shows aneurysmal apex, LV H with easily preserved LV systolic function EF 50 to 55%, with no clear-cut thrombus identified with contrast. Renal ultrasound shows multiple renal cyst. Brain MRI shows small focal acute events ischemic infarct involving the right midbrain. Head MRA shows no abnormalities. Renal function stable. Patient to be discharged to rehab. Follow-up with PCP, nephrology, cardiology and neurology. Patient seen and examined at bedside. Vital signs reviewed and stable. General: Nontoxic, no distress, appears at stated age Derm: Warm, dry Head: Atraumatic, normocephalic, symmetric Eyes: EOMI, no lid lag, anicteric sclera Mouth: No lip lesion, mucus membranes moist Cardiovascular: S1S2 reg, no murmur Lungs: CTA bilateral, no rhonchi, no rales, no accessory muscle use Abdominal: Soft, nontender to palpation, no guarding, no appreciable organomegaly Ext: No gross muscle atrophy, no edema, no contractures Neuro: CN II-XI grossly intact, no focal neuro deficits Psych: Alert, oriented, appropriate affect A total of 33 minutes of time were spent preparing this complex discharge summary. Patient was discharged on 09/22/2023 at 1043. Patient Condition at Discharge: Stable Plan - Discharge Summary Discharge Rx Participant: No New Discharge Prescriptions: New Insulin Detemir (Levemir) [Levemir] 25 unit SQ DAILY@0700 each Clopidogrel [Plavix] 75 mg PO DAILY #0 tab Dapagliflozin Propanediol [Farxiga] 5 mg PO DAILY #30 tablet Aspirin 81 mg PO DAILY tab Atorvastatin [Lipitor] 40 mg PO HS tab Sodium Bicarbonate Tab 650 mg PO BID tab Acetaminophen Tab [Tylenol] 650 mg PO Q6HR PRN tab PRN Reason: Fever And/ Or Pain Discharge Medication List Acetaminophen Tab [Tylenol] 650 mg PO Q6HR PRN tab 09/22/23 [Rx] Aspirin 81 mg PO DAILY tab 09/22/23 [Rx] Atorvastatin [Lipitor] 40 mg PO HS tab 09/22/23 [Rx] Clopidogrel [Plavix] 75 mg PO DAILY #0 tab 09/22/23 [Rx] Dapagliflozin Propanediol [Farxiga] 5 mg PO DAILY #30 tablet 09/22/23 [Rx] Insulin Detemir (Levemir) [Levemir] 25 unit SQ DAILY@0700 each 09/22/23 [Rx] Sodium Bicarbonate Tab 650 mg PO BID tab 09/22/23 [Rx] Follow up Appointment(s)/Referral(s): Opal Ortega MD [STAFF PHYSICIAN] - 2 Weeks Sunny Barron MD [REFERRING] - 1 Week Emmett Gomez MD [REFERRING] - 1 Week Laurent Jacob MD [STAFF PHYSICIAN] - 1 Week Patient Instructions/Handouts: Chronic Kidney Disease (DC), Ischemic Stroke (DC), Diabetes and Nutrition (DC), Diabetes and Exercise (DC), Type 2 Diabetes Management for Adults (DC) Activity/Diet/Wound Care/Special Instructions: Please see PCP, neurology, cardiology and nephrology. Discharge Disposition: TRANSFER TO SNF/ECF
[2023-09-22 11:12] LABS: Glucose,Whole Blood 183 mg/dL (70-110)
--- NOTE | 2023-09-22 20:03 | P.PN ---
Subjective patient is seen for follow-up for acute kidney injury. No significant complaints today. serum creatinine back down to 2.8 today Maintained on saline at 50 mL an hour Objective - Vital Signs Vital signs: Vital Signs Temp 98.7 F 09/22/23 07:28 Pulse 78 09/22/23 07:28 Resp 17 09/22/23 07:28 BP 143/78 09/22/23 07:28 Pulse Ox 94 L 09/22/23 07:28 FiO2 Intake & Output 09/22/23 09/22/23 09/23/23 06:59 18:59 06:59 Output Total 1050 Balance -1050 Weight 96 kg Output: Urine 1050 Other: Voiding Method External Catheter # Bowel Movements 1 2 - Exam patient is awake, comfortable, no acute distress. Confused. Examination of the heart S1 and S2 Examination of the lungs bilateral breath sounds are heard Abdomen is soft nontender Examination of lower extremity shows no significant edema - Labs CBC & Chem 7: 09/20/23 07:01 09/22/23 04:51 Labs: Abnormal Lab Results - Last 24 Hours (Table) 09/21/23 09/22/23 09/22/23 Range/Units 20:12 04:51 06:07 Sodium 134 L (137-145) mmol/L Chloride 108 H (98-107) mmol/L Carbon Dioxide 16 L (22-30) mmol/L BUN 68 H (7-17) mg/dL Creatinine 2.83 H (0.52-1.04) mg/dL Glucose 191 H (74-99) mg/dL POC Glucose (mg/dL) 163 H 224 H (70-110) mg/dL Magnesium 2.5 H (1.6-2.3) mg/dL 09/22/23 Range/Units 11:10 Sodium (137-145) mmol/L Chloride (98-107) mmol/L Carbon Dioxide (22-30) mmol/L BUN (7-17) mg/dL Creatinine (0.52-1.04) mg/dL Glucose (74-99) mg/dL POC Glucose (mg/dL) 183 H (70-110) mg/dL Magnesium (1.6-2.3) mg/dL Assessment and Plan Assessment: 1. Acute kidney injury versus chronic kidney disease. Patient's creatinine 2.2, stable at 2.8 today. Unknown baseline renal function. Patient denies prior history of kidney disease. Patient did receive IV contrast for CT angiogram of the head and neck on September 17, 2023. UA concerning for UTI. Renal US shows cysts consistent with CKD. maintained on gentle IV hydration. 2. Acute CVA. Initial CT negative. MRI acute infarcts right midbrain. 3. Benign hypertension. Stable. 4. Diabetes mellitus with hemoglobin A1c elevated at 9.2% this admission. 5. Metabolic acidosis secondary to acute kidney injury and IV fluids. Plan: Okay for discharge from nephrology standpoint. Follow-up as outpatient in 1 to 2 weeks.
== END 2023-09-22 12:24 | DRG 65 ==
LOC: EC 15:32 → 3SCARD 16:50 → 4SSUR 09-20 13:49
PROVIDERS: ADMIT Internal Medicine; ATTEND Internal Medicine
DX: I63.81 Other cerebral infarction due to occlusion or stenosis of small artery (principal); E87.20 Acidosis, unspecified; N17.9 Acute kidney failure, unspecified; N39.0 Urinary tract infection, site not specified; I12.9 Hypertensive chronic kidney disease with stage 1 through stage 4 chronic kidney disease, or unspecified chronic kidney disease; E11.65 Type 2 diabetes mellitus with hyperglycemia; N18.9 Chronic kidney disease, unspecified; E11.22 Type 2 diabetes mellitus with diabetic chronic kidney disease; W18.30XA Fall on same level, unspecified, initial encounter; E78.5 Hyperlipidemia, unspecified; N28.1 Cyst of kidney, acquired; D72.829 Elevated white blood cell count, unspecified; R79.89 Other specified abnormal findings of blood chemistry; Z71.3 Dietary counseling and surveillance; Z79.899 Other long term (current) drug therapy
CPT/HCPCS: 70544; 70551; 71045; 76770; 80048; 80053; 80061; 81001; 82607; 83036; 83735; 84100; 84443; 84484; 85025; 87086; 93306; 93880; 96372; 96374; 96375; 99285